=== PATIENT | female | born 1945 | race Caucasian/White ===

== ENCOUNTER 2020-03-22 12:33 | Outpatient (REF) | payer OTHER, MEDICARE, MEDICAID, SELFPAY ==
--- NOTE | 2020-03-22 12:46 | XR_ITS ---
EXAMINATION: XR RIBS, LEFT CLINICAL INFORMATION: Pleurodynia COMPARISON: None TECHNIQUE: PA chest and three-view left ribs FINDINGS: There is some linear scarring or atelectasis with appearance of curly B lines seen within the mid and lower left lung. This can be due to edema or distention of the lymphatics. No evidence of interstitial edema elsewhere. No pneumothorax or pleural effusion appreciated. Heart normal size. Views of the left ribs demonstrate what may be acute or chronic nondisplaced fracture anterior aspect of the left eighth rib. No destructive bony lesion is appreciated. There is calcific tendinitis of the left shoulder. XR/XR ribs LT min 3V w CXR1V IMPRESSION: No left pleural effusion identified. No left pleural thickening is seen. Question old or new nondisplaced fracture anterior aspect of the left eighth rib. Regions of linear scarring as well as what appears be curly B lines within the mid and lower left lung without evidence of interstitial edema elsewhere.
== END 2020-03-22 12:34 | disposition home or self-care (01) ==
LOC: HO.HMGCX 12:33
PROVIDERS: Visit Provider Hospitalist
DX: R07.81 Pleurodynia (principal)
CPT/HCPCS: 71101

== ENCOUNTER 2020-04-24 09:36 | Outpatient (REF) | payer MEDICARE, MEDICAID, SELFPAY ==
[2020-04-24 11:04] LABS: Estimated Average Glucose 183 mg/dL; Hemoglobin A1C 235.1581 umol/L
[2020-04-24 11:20] LABS: Alanine Aminotransferase 20 U/L (0-31); Albumin Level 4.4 g/dL (3.5-5.0); Alkaline Phosphatase 89 U/L (39-117); Anion Gap 15 (12-20); Aspartate Amino Transferase 17 U/L (5-31); Bilirubin Total 0.9 mg/dL (0.0-1.0); Blood Urea Nitrogen 16 mg/dL (9-16); Calcium 9.2 mg/dL (8.4-10.2); Carbon Dioxide 26 mmol/L (22-29); Chloride 104 mmol/L (96-108); Cholesterol 151 mg/dL; Estimated Glomerular Filt Rate > 60; Glucose Fasting 155 mg/dL (60-99); HDL Cholesterol 44 mg/dL; LDL Cholesterol Calculated 85 mg/dl; Potassium 4.5 mmol/l (3.3-5.1); Sodium 140 mmol/L (135-145); Total Protein 7.3 g/dL (6.5-8.0); Triglycerides 113 mg/dL
== END 2020-04-24 09:37 | disposition home or self-care (01) ==
LOC: HO.LAB 09:36
PROVIDERS: PCP Internal Medicine; Visit Provider Nurse Practitioner Family
DX: E78.00 Pure hypercholesterolemia, unspecified (principal); E11.9 Type 2 diabetes mellitus without complications
CPT/HCPCS: 80053; 80061; 83036

== ENCOUNTER 2020-07-06 07:48 | Outpatient (REF) | payer MEDICARE, MEDICAID, SELFPAY ==
[2020-07-06 08:20] LABS: MANUAL DIFF FLAG NO
[2020-07-06 08:32] LABS: Basophils Absolute Auto 0.1 X10*3/uL (0.0-0.2); Basophils Percent Auto 1.1 % (0-2); Eosinophils Absolute Auto 0.8 X10*3/uL (0.0-0.4); Eosinophils Percent Auto 7.7 % (0-4); Hematocrit 43.5 % (37-47); Hemoglobin 14.2 g/dl (12.0-16.0); Imm Gran Abs Auto 0.17 X10*3/uL (0.00-0.03); Imm Gran Pct Auto 1.6 % (0.0-0.4); Lymphocytes Absolute Auto 1.9 X10*3/uL (1.2-4.9); Lymphocytes Percent Auto 18.3 % (20-40); Mean Corpuscular HGB Conc 32.6 g/dl (31.0-35.0); Mean Corpuscular Hemoglobin 29.6 pg (27.0-33.0); Mean Corpuscular Volume 90.6 fL (80-98); Mean Platelet Volume 9.7 fL (9.4-12.3); Monocytes Absolute Auto 0.6 X10*3/uL (0.1-1.2); Monocytes Percent Auto 5.6 % (2-11); Neutrophils Absolute Auto 6.9 X10*3/uL (2.0-8.3); Neutrophils Percent Auto 65.7 % (45-73); Platelet Count 222 X10*3/uL (160-400); White Blood Count 10.5 X10*3/uL (4.8-10.8)
[2020-07-06 08:41] LABS: Estimated Average Glucose 209 mg/dL; Hemoglobin A1c % 8.9 %
[2020-07-06 08:59] LABS: Alanine Aminotransferase 25 U/L (0-31); Albumin Level 4.2 g/dL (3.5-5.0); Alkaline Phosphatase 77 U/L (39-117); Anion Gap 14 (12-20); Aspartate Amino Transferase 18 U/L (5-31); Bilirubin Total 0.9 mg/dL (0.0-1.0); Blood Urea Nitrogen 20 mg/dL (9-16); Calcium 8.9 mg/dL (8.4-10.2); Carbon Dioxide 25 mmol/L (22-29); Chloride 105 mmol/L (96-108); Cholesterol 149 mg/dL; Estimated Glomerular Filt Rate > 60; Glucose Fasting 208 mg/dL (60-99); HDL Cholesterol 37 mg/dL; LDL Cholesterol Calculated 76 mg/dl; Potassium 4.6 mmol/L (3.3-5.1); Sodium 139 mmol/L (135-145); Total Protein 6.9 g/dL (6.5-8.0); Triglycerides 182 mg/dL
[2020-07-06 09:10] LABS: TSH reflex Free T4 1.14 uIU/mL (0.32-4.0); Vitamin D 25-OH Total 34.5 ng/mL (>30)
[2020-07-06 09:51] LABS: Glucose Urine UA 500 MG/DL (NEG); Leukocyte Esterase Urine NEG (NEG); Nitrite Urine NEG (NEG); PH 5.5 (5.0-8.0); Specific Gravity - Urine 1.025 (1.005-1.025); Urine Blood TRACE (NEG); Urine Ketones 5 MG/DL (NEG); Urine Protein NEG (NEG-TRACE)
[2020-07-06 09:52] LABS: Appearance Urine HAZY; Color Urine YELLOW
[2020-07-06 10:01] LABS: Mucus Urine TRACE /LPF; Squamous Epithelial Cell Urine 1+ /LPF; WBC Urine 0-2 /HPF (0-4)
== END 2020-07-06 07:49 | disposition home or self-care (01) ==
LOC: HO.LAB 07:48
PROVIDERS: PCP Internal Medicine; Visit Provider Internal Medicine
DX: M47.812 Spondylosis without myelopathy or radiculopathy, cervical region (principal); F17.200 Nicotine dependence, unspecified, uncomplicated; E78.00 Pure hypercholesterolemia, unspecified; E11.9 Type 2 diabetes mellitus without complications; E66.3 Overweight; E55.9 Vitamin D deficiency, unspecified
CPT/HCPCS: 36415; 80053; 80061; 81001; 82306; 83036; 84443; 85025

== ENCOUNTER 2020-12-12 09:09 | Outpatient (REF) | payer MEDICARE, MEDICAID, SELFPAY ==
[2020-12-12 10:35] LABS: MANUAL DIFF FLAG NO
[2020-12-12 10:47] LABS: Basophils Absolute Auto 0.1 X10*3/uL (0.0-0.2); Basophils Percent Auto 0.6 % (0-2); Eosinophils Absolute Auto 0.4 X10*3/uL (0.0-0.4); Eosinophils Percent Auto 3.4 % (0-4); Hematocrit 42.2 % (37-47); Hemoglobin 13.4 g/dl (12.0-16.0); Imm Gran Abs Auto 0.09 X10*3/uL (0.00-0.03); Imm Gran Pct Auto 0.7 % (0.0-0.4); Lymphocytes Absolute Auto 2.1 X10*3/uL (1.2-4.9); Mean Corpuscular HGB Conc 31.8 g/dl (31.0-35.0); Mean Corpuscular Hemoglobin 28.3 pg (27.0-33.0); Mean Platelet Volume 9.5 fL (9.4-12.3); Monocytes Absolute Auto 0.5 X10*3/uL (0.1-1.2); Monocytes Percent Auto 4.4 % (2-11); Neutrophils Absolute Auto 9.1 X10*3/uL (2.0-8.3); Neutrophils Percent Auto 73.9 % (45-73); Platelet Count 245 X10*3/uL (160-400); Red Blood Count 4.74 X10*6/uL (4.20-5.50); Red Cell Distribution Width 14.2 % (11.0-16.0); White Blood Count 12.4 X10*3/uL (4.8-10.8)
[2020-12-12 10:54] LABS: Glucose Urine UA NEG (NEG); Leukocyte Esterase Urine NEG (NEG); Nitrite Urine NEG (NEG); Specific Gravity - Urine 1.015 (1.005-1.025); Urine Blood NEG (NEG); Urine Ketones NEG (NEG); Urine Protein NEG (NEG-TRACE)
[2020-12-12 10:55] LABS: Appearance Urine CLEAR; Color Urine YELLOW
[2020-12-12 10:56] LABS: Alanine Aminotransferase 23 U/L (0-31); Albumin Level 4.1 g/dL (3.5-5.0); Alkaline Phosphatase 88 U/L (39-117); Anion Gap 13 (12-20); Aspartate Amino Transferase 25 U/L (5-31); Bilirubin Total 0.6 mg/dL (0.0-1.0); Blood Urea Nitrogen 11 mg/dL (9-16); Calcium 9.5 mg/dL (8.4-10.2); Carbon Dioxide 24 mmol/L (22-29); Chloride 107 mmol/L (96-108); Cholesterol 119 mg/dL; Estimated Glomerular Filt Rate > 60; Glucose Fasting 110 mg/dL (60-99); HDL Cholesterol 42 mg/dL; LDL Cholesterol Calculated 63 mg/dl; Potassium 3.8 mmol/L (3.3-5.1); Sodium 140 mmol/L (135-145); Total Protein 6.7 g/dL (6.5-8.0); Triglycerides 70 mg/dL
[2020-12-12 11:10] LABS: Creatinine Urine 63.01 mg/dL; Microalbum/Creatinine Ratio Ur 31.7 ug/mg cr
[2020-12-12 11:19] LABS: Estimated Average Glucose 183 mg/dL
[2020-12-12 11:21] LABS: TSH reflex Free T4 0.84 uIU/mL (0.32-4.0); Vitamin D 25-OH Total 39.7 ng/mL (>30)
[2020-12-13 21:57] LABS: C Peptide 2.16 ng/mL (0.80-3.85)
== END 2020-12-12 09:10 | disposition home or self-care (01) ==
LOC: HO.LAB 09:09
PROVIDERS: PCP Internal Medicine; Visit Provider Internal Medicine
DX: I10 Essential (primary) hypertension (principal); R03.0 Elevated blood-pressure reading, without diagnosis of hypertension; E11.9 Type 2 diabetes mellitus without complications; E78.00 Pure hypercholesterolemia, unspecified; E66.3 Overweight; E55.9 Vitamin D deficiency, unspecified; F17.200 Nicotine dependence, unspecified, uncomplicated; M85.80 Other specified disorders of bone density and structure, unspecified site
CPT/HCPCS: 36415; 80053; 80061; 81003; 82043; 82306; 83036; 84443; 84681; 85025

== ENCOUNTER 2021-01-04 14:09 | Outpatient (REF) | payer MEDICARE, MEDICAID, SELFPAY ==
--- NOTE | ~2021-01-04 | MM_ITS ---
EXAMINATION: BONE DENSITOMETRY CLINICAL INDICATION: Menopause. COMPARISON: None (current study represents initial baseline exam). TECHNIQUE: Using a Agenda DXA System (software version: 13.1) manufactured by [employer], dual-energy x-ray absorptiometry was performed of the lumbar spine and left hip. The images are of good technical quality. Summary results are attached. FINDINGS: AP SPINE L1-L2 (excluding L3 and L4): The data of L1-L4 has been changed to exclude the L3 and L4 vertebral bodies, because degenerative changes at these levels may cause overestimation of lumbar spine density. BMD 1.035 g/cm2, Z-score 0.7, T-score -1.1, osteopenia. LEFT FEMUR, NECK: BMD 0.784 g/cm2, Z-score 0.2, T-score -1.8, osteopenia. LEFT FEMUR, TOTAL: BMD 0.822 g/cm2, Z-score 0.4, T-score -1.5, osteopenia. IDENTIFIED RISK FACTORS: Menopause, rheumatoid arthritis, height loss, tobacco use (current smoker). HISTORY OF FRACTURE: None listed. MEDICATIONS: Calcium, vitamin D. MM/XR DEXA axial skeleton IMPRESSION: 1. DIAGNOSIS: Osteopenia based on the lowest T-score value of -1.8 in the femoral neck applying World Health Organization criteria. 2. 10-YEAR FRACTURE RISK PREDICTION, FRAX: Major osteoporotic fracture (clinical spine, forearm, hip or shoulder) 18.3%. Hip fracture 7.4%. 3. Treatment Recommendations: NOF guidelines recommend consideration for treatment in postmenopausal women and men age 50 and older presenting with the following: -A hip or vertebral (clinical or morphometric) fracture. -T-score less than or equal to -2.5 at the femoral neck or spine after appropriate evaluation to exclude secondary causes. -Low bone mass at the hip or spine and a 10-year fracture probability by FRAX of greater than or equal to 3% for hip fracture or greater than or equal to 20% for major osteoporotic fracture based on the [place] adapted WHO algorithm. 4. Other Recommendations: All treatment decisions require clinical judgment and consideration of individual patient factors, including patient preferences, comorbidities, previous drug use, risk factors not captured in the FRAX model (e.g. frailty, falls, vitamin D deficiency, increased bone turnover, interval significant decline in bone density) and possible under or overestimation of fracture risk by FRAX. Additional medical evaluation for secondary cause of low bone mineral density may be appropriate. FUTURE SCAN RECOMMENDATION: People with diagnosed cases of osteoporosis or at high risk for fracture should have regular bone mineral density tests. For patients eligible for Medicare, routine testing is allowed once every 2 years. The testing frequency can be increased to one year for patients who have rapidly progressing disease, those who are receiving or discontinuing medical therapy to restore bone mass, or have additional risk factors.
== END 2021-01-04 14:10 | disposition home or self-care (01) ==
LOC: HO.MAMMO 14:09
PROVIDERS: PCP Internal Medicine; Visit Provider Internal Medicine
DX: Z13.820 Encounter for screening for osteoporosis (principal); M85.80 Other specified disorders of bone density and structure, unspecified site; Z78.0 Asymptomatic menopausal state; M06.9 Rheumatoid arthritis, unspecified; F17.200 Nicotine dependence, unspecified, uncomplicated; Z79.899 Other long term (current) drug therapy
CPT/HCPCS: 77080

== ENCOUNTER 2021-03-19 09:09 | Outpatient (REF) | payer MEDICARE, MEDICAID, SELFPAY ==
[2021-03-19 09:34] LABS: MANUAL DIFF FLAG NO
[2021-03-19 10:13] LABS: Basophils Absolute Auto 0.1 X10*3/uL (0.0-0.2); Basophils Percent Auto 0.6 % (0-2); Eosinophils Absolute Auto 0.4 X10*3/uL (0.0-0.4); Eosinophils Percent Auto 3.7 % (0-4); Hematocrit 43.8 % (37.0-47.0); Hemoglobin 14.4 g/dl (12.0-16.0); Imm Gran Abs Auto 0.05 X10*3/uL (0.00-0.03); Imm Gran Pct Auto 0.5 % (0.0-0.4); Lymphocytes Absolute Auto 2.1 X10*3/uL (1.2-4.9); Lymphocytes Percent Auto 18.8 % (20-40); Mean Corpuscular HGB Conc 32.9 g/dl (31.0-35.0); Mean Corpuscular Hemoglobin 29.1 pg (27.0-33.0); Mean Corpuscular Volume 88.5 fL (80.0-98.0); Mean Platelet Volume 9.5 fL (9.4-12.3); Monocytes Absolute Auto 0.5 X10*3/uL (0.1-1.2); Monocytes Percent Auto 4.4 % (2-11); Platelet Count 252 X10*3/uL (160-400); Red Blood Count 4.95 X10*6/uL (4.20-5.50); Red Cell Distribution Width 15.2 % (11.0-16.0); White Blood Count 11.1 X10*3/uL (4.8-10.8)
[2021-03-19 10:29] LABS: Appearance Urine CLEAR; Color Urine YELLOW; Glucose Urine UA NEG (NEG); Leukocyte Esterase Urine NEG (NEG); Nitrite Urine NEG (NEG); Urine Blood NEG (NEG); Urine Ketones NEG (NEG); Urine Protein NEG (NEG-TRACE)
[2021-03-19 10:44] LABS: Alanine Aminotransferase 28 U/L (0-31); Albumin Level 4.1 g/dL (3.5-5.0); Alkaline Phosphatase 105 U/L (39-117); Anion Gap 14 (12-20); Aspartate Amino Transferase 22 U/L (5-31); Bilirubin Total 0.8 mg/dL (0.0-1.0); Blood Urea Nitrogen 15 mg/dL (9-16); Calcium 9.3 mg/dL (8.4-10.2); Carbon Dioxide 27 mmol/L (22-29); Chloride 105 mmol/L (96-108); Cholesterol 139 mg/dL; Estimated Glomerular Filt Rate > 60; Glucose Fasting 140 mg/dL (60-99); HDL Cholesterol 42 mg/dL; LDL Cholesterol Calculated 78 mg/dl; Potassium 4.5 mmol/L (3.3-5.1); Sodium 141 mmol/L (135-145); Triglycerides 97 mg/dL
[2021-03-19 10:59] LABS: Estimated Average Glucose 154 mg/dL
[2021-03-19 11:03] LABS: Creatinine Urine 56.17 mg/dL; Microalbum/Creatinine Ratio Ur 14.2 ug/mg cr
[2021-03-19 11:06] LABS: TSH reflex Free T4 0.88 uIU/mL (0.32-4.0); Vitamin D 25-OH Total 48.8 ng/mL (>30)
== END 2021-03-19 09:10 | disposition home or self-care (01) ==
LOC: HO.LAB 09:09
PROVIDERS: PCP Internal Medicine; Visit Provider Internal Medicine
DX: E78.00 Pure hypercholesterolemia, unspecified (principal); E55.9 Vitamin D deficiency, unspecified; E11.9 Type 2 diabetes mellitus without complications; I10 Essential (primary) hypertension
CPT/HCPCS: 36415; 80053; 80061; 81003; 82043; 82306; 83036; 84443; 85025

== ENCOUNTER 2021-06-25 09:28 | Outpatient (REF) | payer MEDICARE, MEDICAID, SELFPAY ==
[2021-06-25 09:48] LABS: MANUAL DIFF FLAG NO
[2021-06-25 10:13] LABS: Basophils Absolute Auto 0.1 X10*3/uL (0.0-0.2); Basophils Percent Auto 0.6 % (0-2); Eosinophils Absolute Auto 0.4 X10*3/uL (0.0-0.4); Eosinophils Percent Auto 3.4 % (0-4); Hematocrit 43.1 % (37.0-47.0); Hemoglobin 14.2 g/dl (12.0-16.0); Imm Gran Abs Auto 0.14 X10*3/uL (0.00-0.03); Imm Gran Pct Auto 1.1 % (0.0-0.4); Lymphocytes Percent Auto 15.9 % (20-40); Mean Corpuscular HGB Conc 32.9 g/dl (31.0-35.0); Mean Corpuscular Hemoglobin 29.9 pg (27.0-33.0); Mean Corpuscular Volume 90.7 fL (80.0-98.0); Mean Platelet Volume 9.4 fL (9.4-12.3); Monocytes Absolute Auto 0.7 X10*3/uL (0.1-1.2); Monocytes Percent Auto 5.2 % (2-11); Neutrophils Absolute Auto 9.2 x10*3/uL (2.0-8.3); Neutrophils Percent Auto 73.8 % (45-73); Platelet Count 246 X10*3/uL (160-400); Red Blood Count 4.75 X10*6/uL (4.20-5.50); Red Cell Distribution Width 14.8 % (11.0-16.0); White Blood Count 12.5 X10*3/uL (4.8-10.8)
[2021-06-25 10:46] LABS: Appearance Urine CLEAR; Color Urine YELLOW; Glucose Urine UA 100 MG/DL (NEG); Leukocyte Esterase Urine NEG (NEG); Nitrite Urine NEG (NEG); PH 5.5 (5.0-8.0); Urine Blood NEG (NEG); Urine Ketones NEG (NEG); Urine Protein NEG (NEG-TRACE)
[2021-06-25 10:49] LABS: Estimated Average Glucose 203 mg/dL; Hemoglobin A1c % 8.7 %
[2021-06-25 11:16] LABS: TSH reflex Free T4 1.15 uIU/mL (0.32-4.0); Vitamin D 25-OH Total 36.5 ng/mL (>30)
[2021-06-25 11:33] LABS: Cholesterol 164 mg/dL; HDL Cholesterol 44 mg/dL; LDL Cholesterol Calculated 90 mg/dl; Triglycerides 151 mg/dL
== END 2021-06-25 09:29 | disposition home or self-care (01) ==
LOC: HO.LAB 09:28
PROVIDERS: PCP Internal Medicine; Visit Provider Internal Medicine
DX: I10 Essential (primary) hypertension (principal); E55.9 Vitamin D deficiency, unspecified; E78.00 Pure hypercholesterolemia, unspecified; E11.9 Type 2 diabetes mellitus without complications
CPT/HCPCS: 36415; 80053; 80061; 81003; 82043; 82306; 83036; 84443; 85025

== ENCOUNTER 2021-06-26 09:37 | Outpatient (REF) | payer MEDICARE, MEDICAID, SELFPAY ==
[2021-06-26 11:04] LABS: Alanine Aminotransferase 26 U/L (0-31); Albumin Level 4.5 g/dL (3.5-5.0); Alkaline Phosphatase 99 U/L (39-117); Anion Gap 16 (12-20); Aspartate Amino Transferase 25 U/L (5-31); Blood Urea Nitrogen 15 mg/dL (9-16); Calcium 10.5 mg/dL (8.4-10.2); Carbon Dioxide 24 mmol/L (22-29); Chloride 102 mmol/L (96-108); Estimated Glomerular Filt Rate > 60; Glucose Fasting 213 mg/dL (60-99); Potassium 4.4 mmol/L (3.3-5.1); Sodium 138 mmol/L (135-145); Total Protein 7.8 g/dL (6.5-8.0)
== END 2021-06-26 09:38 | disposition home or self-care (01) ==
LOC: HO.LAB 09:37
PROVIDERS: PCP Internal Medicine; Visit Provider Internal Medicine
DX: E78.00 Pure hypercholesterolemia, unspecified (principal)
CPT/HCPCS: 36415; 80053

== ENCOUNTER 2021-09-24 08:27 | Outpatient (REF) | payer MEDICARE, MEDICAID, SELFPAY ==
[2021-09-24 09:04] LABS: MANUAL DIFF FLAG NO
[2021-09-24 09:42] LABS: Basophils Absolute Auto 0.1 X10*3/uL (0.0-0.2); Basophils Percent Auto 0.8 % (0-2); Eosinophils Absolute Auto 0.4 X10*3/uL (0.0-0.4); Eosinophils Percent Auto 3.7 % (0-4); Hematocrit 44.1 % (37.0-47.0); Hemoglobin 14.4 g/dl (12.0-16.0); Imm Gran Abs Auto 0.11 X10*3/uL (0.00-0.03); Lymphocytes Absolute Auto 1.5 X10*3/uL (1.2-4.9); Lymphocytes Percent Auto 14.2 % (20-40); Mean Corpuscular HGB Conc 32.7 g/dl (31.0-35.0); Mean Corpuscular Hemoglobin 30.1 pg (27.0-33.0); Mean Corpuscular Volume 92.3 fL (80.0-98.0); Mean Platelet Volume 9.6 fL (9.4-12.3); Monocytes Absolute Auto 0.6 X10*3/uL (0.1-1.2); Monocytes Percent Auto 5.6 % (2-11); Neutrophils Percent Auto 74.7 % (45-73); Platelet Count 237 X10*3/uL (160-400); Red Blood Count 4.78 X10*6/uL (4.20-5.50); Red Cell Distribution Width 14.1 % (11.0-16.0); White Blood Count 10.7 X10*3/uL (4.8-10.8)
[2021-09-24 09:45] LABS: Estimated Average Glucose 192 mg/dL; Hemoglobin A1c % 8.3 %
[2021-09-24 09:59] LABS: Alanine Aminotransferase 31 U/L (0-31); Albumin Level 4.2 g/dL (3.5-5.0); Alkaline Phosphatase 90 U/L (39-117); Anion Gap 15 (12-20); Aspartate Amino Transferase 23 U/L (5-31); Bilirubin Total 0.7 mg/dL (0.0-1.0); Blood Urea Nitrogen 12 mg/dL (9-16); Calcium 10.2 mg/dL (8.4-10.2); Carbon Dioxide 25 mmol/L (22-29); Chloride 104 mmol/L (96-108); Cholesterol 149 mg/dL; Estimated Glomerular Filt Rate > 60; Glucose Fasting 194 mg/dL (60-99); HDL Cholesterol 38 mg/dL; LDL Cholesterol Calculated 74 mg/dl; Potassium 4.6 mmol/L (3.3-5.1); Sodium 139 mmol/L (135-145); Total Protein 7.3 g/dL (6.5-8.0); Triglycerides 186 mg/dL
[2021-09-24 10:22] LABS: TSH reflex Free T4 0.85 uIU/mL (0.32-4.0); Vitamin D 25-OH Total 39.2 ng/mL (>30)
[2021-09-24 10:40] LABS: Appearance Urine HAZY; Color Urine YELLOW; Glucose Urine UA 100 MG/DL (NEG); Leukocyte Esterase Urine NEG (NEG); Nitrite Urine NEG (NEG); Specific Gravity - Urine 1.015 (1.005-1.025); Urine Blood NEG (NEG); Urine Ketones NEG (NEG); Urine Protein NEG (NEG-TRACE)
[2021-09-24 10:59] LABS: Creatinine Urine 79.61 mg/dL; Microalbum/Creatinine Ratio Ur 21.3 ug/mg cr
== END 2021-09-24 08:28 | disposition home or self-care (01) ==
LOC: HO.LAB 08:27
PROVIDERS: PCP Internal Medicine; Visit Provider Internal Medicine
DX: E11.9 Type 2 diabetes mellitus without complications (principal); E78.00 Pure hypercholesterolemia, unspecified; E55.9 Vitamin D deficiency, unspecified; I10 Essential (primary) hypertension; F17.200 Nicotine dependence, unspecified, uncomplicated
CPT/HCPCS: 36415; 80053; 80061; 81003; 82043; 82306; 83036; 84443; 85025

== ENCOUNTER 2022-01-15 09:24 | Outpatient (REF) | payer MEDICARE, MEDICAID, SELFPAY ==
[2022-01-15 09:46] LABS: MANUAL DIFF FLAG NO
[2022-01-15 10:24] LABS: Appearance Urine Clear; Color Urine Yellow; Glucose Urine UA Negative (Negative); Leukocyte Esterase Urine Moderate (2+) (Negative); Nitrite Urine Negative (Negative); PH 6.5 (5.0-9.0); Urine Blood Negative (Negative); Urine Ketones Negative (Negative); Urine Protein Negative (Neg-Trace)
[2022-01-15 10:26] LABS: Basophils Absolute Auto 0.1 X10*3/uL (0.0-0.2); Basophils Percent Auto 0.8 % (0-2); Eosinophils Absolute Auto 0.5 X10*3/uL (0.0-0.4); Eosinophils Percent Auto 5.6 % (0-4); Hematocrit 44.6 % (37.0-47.0); Hemoglobin 14.5 g/dl (12.0-16.0); Imm Gran Abs Auto 0.06 X10*3/uL (0.00-0.03); Imm Gran Pct Auto 0.6 % (0.0-0.4); Lymphocytes Absolute Auto 1.7 X10*3/uL (1.2-4.9); Lymphocytes Percent Auto 18.2 % (20-40); Mean Corpuscular HGB Conc 32.5 g/dl (31.0-35.0); Mean Corpuscular Volume 92.1 fL (80.0-98.0); Mean Platelet Volume 9.6 fL (9.4-12.3); Monocytes Absolute Auto 0.6 X10*3/uL (0.1-1.2); Monocytes Percent Auto 6.8 % (2-11); Neutrophils Absolute Auto 6.4 x10*3/uL (2.0-8.3); Platelet Count 248 X10*3/uL (160-400); Red Blood Count 4.84 X10*6/uL (4.20-5.50); Red Cell Distribution Width 14.2 % (11.0-16.0); White Blood Count 9.5 X10*3/uL (4.8-10.8)
[2022-01-15 10:35] LABS: Bacteria Urine None Seen (None Seen); Hyaline Casts Urine 0-2 /LPF (0-2); RBC Urine 0-2 /HPF (0-2); Squamous Epithelial Cell Urine 0-2 /HPF (0-2); WBC Urine 0-5 /HPF (0-5)
[2022-01-15 10:43] LABS: Alanine Aminotransferase 44 U/L (0-31); Albumin Level 4.3 g/dL (3.5-5.0); Alkaline Phosphatase 92 U/L (39-117); Anion Gap 16 (12-20); Aspartate Amino Transferase 34 U/L (5-31); Bilirubin Total 0.8 mg/dL (0.0-1.0); Blood Urea Nitrogen 8 mg/dL (9-16); Calcium 9.3 mg/dL (8.4-10.2); Carbon Dioxide 28 mmol/L (22-29); Chloride 103 mmol/L (96-108); Cholesterol 130 mg/dL; Estimated Average Glucose 143 mg/dL; Estimated Glomerular Filt Rate > 60; Glucose Fasting 105 mg/dL (60-99); HDL Cholesterol 54 mg/dL; Hemoglobin A1c % 6.6 %; LDL Cholesterol Calculated 64 mg/dl; Sodium 143 mmol/L (135-145); Total Protein 7.2 g/dL (6.5-8.0); Triglycerides 64 mg/dL
[2022-01-15 11:07] LABS: TSH reflex Free T4 1.03 uIU/mL (0.32-4.0); Vitamin D 25-OH Total 53.7 ng/mL (>30)
[2022-01-15 11:09] LABS: Creatinine Urine 41.73 mg/dL; Microalbum/Creatinine Ratio Ur 28.7 ug/mg cr
== END 2022-01-15 09:25 | disposition home or self-care (01) ==
LOC: HO.LAB 09:24
PROVIDERS: PCP Internal Medicine; Visit Provider Internal Medicine
DX: E78.00 Pure hypercholesterolemia, unspecified (principal); E55.9 Vitamin D deficiency, unspecified; E11.9 Type 2 diabetes mellitus without complications; I10 Essential (primary) hypertension
CPT/HCPCS: 36415; 80053; 80061; 81001; 82043; 82306; 83036; 84443; 85025; 87086

== ENCOUNTER 2022-04-18 09:16 | Outpatient (REF) | payer MEDICARE, MEDICAID, SELFPAY ==
[2022-04-18 09:44] LABS: MANUAL DIFF FLAG NO
[2022-04-18 10:18] LABS: Basophils Absolute Auto 0.1 X10*3/uL (0.0-0.2); Basophils Percent Auto 0.8 % (0-2); Eosinophils Absolute Auto 0.7 X10*3/uL (0.0-0.4); Eosinophils Percent Auto 5.8 % (0-4); Hemoglobin 13.7 g/dl (12.0-16.0); Imm Gran Pct Auto 0.9 % (0.0-0.4); Lymphocytes Absolute Auto 1.9 X10*3/uL (1.2-4.9); Lymphocytes Percent Auto 16.7 % (20-40); Mean Corpuscular HGB Conc 31.9 g/dl (31.0-35.0); Mean Corpuscular Hemoglobin 29.4 pg (27.0-33.0); Mean Corpuscular Volume 92.3 fL (80.0-98.0); Mean Platelet Volume 9.5 fL (9.4-12.3); Monocytes Absolute Auto 0.6 X10*3/uL (0.1-1.2); Monocytes Percent Auto 5.2 % (2-11); Neutrophils Percent Auto 70.6 % (45-73); Platelet Count 234 X10*3/uL (160-400); Red Blood Count 4.66 X10*6/uL (4.20-5.50); Red Cell Distribution Width 14.9 % (11.0-16.0); White Blood Count 11.3 X10*3/uL (4.8-10.8)
[2022-04-18 10:20] LABS: Appearance Urine Clear; Color Urine Yellow; Glucose Urine UA Negative (Negative); Leukocyte Esterase Urine Small (1+) (Negative); Nitrite Urine Negative (Negative); Specific Gravity - Urine 1.015 (1.005-1.025); UMIC TRIGGER UACC YES; Urine Blood Negative (Negative); Urine Ketones Negative (Negative); Urine Protein Negative (Neg-Trace)
[2022-04-18 10:36] LABS: Bacteria Urine None Seen (None Seen); Hyaline Casts Urine 0-2 /LPF (0-2); RBC Urine 0-2 /HPF (0-2); Squamous Epithelial Cell Urine 0-2 /HPF (0-2); UACC Culture Trigger YES; WBC Urine 0-5 /HPF (0-5)
[2022-04-18 10:37] LABS: Estimated Average Glucose 148 mg/dL; Hemoglobin A1c % 6.8 %
[2022-04-18 11:22] LABS: Creatinine Urine 51.59 mg/dL; Microalbum/Creatinine Ratio Ur 19.3 ug/mg cr
[2022-04-18 12:41] LABS: Alanine Aminotransferase 18 U/L (0-31); Alkaline Phosphatase 95 U/L (39-117); Anion Gap 11 (12-20); Aspartate Amino Transferase 17 U/L (5-31); Bilirubin Total 0.6 mg/dL (0.0-1.0); Blood Urea Nitrogen 17 mg/dL (9-16); Calcium 9.3 mg/dL (8.4-10.2); Carbon Dioxide 28 mmol/L (22-29); Chloride 105 mmol/L (96-108); Cholesterol 143 mg/dL; Estimated Glomerular Filt Rate > 60; Glucose Fasting 126 mg/dL (60-99); HDL Cholesterol 47 mg/dL; LDL Cholesterol Calculated 77 mg/dl; Potassium 4.4 mmol/L (3.3-5.1); Sodium 140 mmol/L (135-145); TSH reflex Free T4 0.82 uIU/mL (0.32-4.0); Total Protein 6.6 g/dL (6.5-8.0); Triglycerides 96 mg/dL; Vitamin D 25-OH Total 44.3 ng/mL (>30)
== END 2022-04-18 09:17 | disposition home or self-care (01) ==
LOC: HO.LAB 09:16
PROVIDERS: PCP Internal Medicine; Visit Provider Internal Medicine
DX: I10 Essential (primary) hypertension (principal); E11.9 Type 2 diabetes mellitus without complications; E55.9 Vitamin D deficiency, unspecified; E78.00 Pure hypercholesterolemia, unspecified
CPT/HCPCS: 36415; 80053; 80061; 81001; 82043; 82306; 83036; 84443; 85025; 87086

== ENCOUNTER 2022-07-21 09:54 | Outpatient (REF) | payer MEDICARE, MEDICAID, SELFPAY ==
[2022-07-21 10:08] LABS: MANUAL DIFF FLAG NO
[2022-07-21 10:54] LABS: Basophils Absolute Auto 0.1 X10*3/uL (0.0-0.2); Basophils Percent Auto 0.9 % (0-2); Eosinophils Absolute Auto 0.8 X10*3/uL (0.0-0.4); Eosinophils Percent Auto 7.2 % (0-4); Hematocrit 45.4 % (37.0-47.0); Imm Gran Abs Auto 0.08 X10*3/uL (0.00-0.03); Imm Gran Pct Auto 0.8 % (0.0-0.4); Lymphocytes Percent Auto 19.2 % (20-40); Mean Corpuscular Hemoglobin 30.4 pg (27.0-33.0); Mean Corpuscular Volume 92.1 fL (80.0-98.0); Mean Platelet Volume 9.6 fL (9.4-12.3); Monocytes Absolute Auto 0.6 X10*3/uL (0.1-1.2); Monocytes Percent Auto 5.2 % (2-11); Neutrophils Percent Auto 66.7 % (45-73); Platelet Count 228 X10*3/uL (160-400); Red Blood Count 4.93 X10*6/uL (4.20-5.50); Red Cell Distribution Width 14.5 % (11.0-16.0); White Blood Count 10.5 X10*3/uL (4.8-10.8)
[2022-07-21 11:18] LABS: Appearance Urine Clear; Color Urine Yellow; Glucose Urine UA Negative (Negative); Leukocyte Esterase Urine Moderate (2+) (Negative); Nitrite Urine Negative (Negative); Specific Gravity - Urine 1.015 (1.005-1.025); UMIC TRIGGER UACC YES; Urine Blood Negative (Negative); Urine Ketones Negative (Negative); Urine Protein Negative (Neg-Trace)
[2022-07-21 11:20] LABS: Estimated Average Glucose 171 mg/dL; Hemoglobin A1c % 7.6 %
[2022-07-21 11:32] LABS: Bacteria Urine None Seen (None Seen); Hyaline Casts Urine 0-2 /LPF (0-2); RBC Urine 0-2 /HPF (0-2); Squamous Epithelial Cell Urine 0-2 /HPF (0-2); WBC Urine 0-5 /HPF (0-5)
[2022-07-21 11:38] LABS: Alanine Aminotransferase 25 U/L (0-31); Albumin Level 4.3 g/dL (3.5-5.0); Alkaline Phosphatase 87 U/L (39-117); Anion Gap 13 (12-20); Aspartate Amino Transferase 19 U/L (5-31); Bilirubin Total 1.1 mg/dL (0.0-1.0); Blood Urea Nitrogen 17 mg/dL (9-16); Calcium 9.3 mg/dL (8.4-10.2); Carbon Dioxide 26 mmol/L (22-29); Chloride 105 mmol/L (96-108); Cholesterol 167 mg/dL; Estimated Glomerular Filt Rate > 60; Glucose Fasting 137 mg/dL (60-99); HDL Cholesterol 45 mg/dL; LDL Cholesterol Calculated 84 mg/dl; Potassium 4.2 mmol/L (3.3-5.1); Sodium 140 mmol/L (135-145); Total Protein 7.1 g/dL (6.5-8.0); Triglycerides 193 mg/dL
[2022-07-21 12:03] LABS: TSH reflex Free T4 1.16 uIU/mL (0.32-4.0); Vitamin D 25-OH Total 41.5 ng/mL (>30)
[2022-07-21 12:46] LABS: Microalbum/Creatinine Ratio Ur 24.4 ug/mg cr
== END 2022-07-21 09:55 | disposition home or self-care (01) ==
LOC: HO.LAB 09:54
PROVIDERS: PCP Internal Medicine; Visit Provider Internal Medicine
DX: E78.00 Pure hypercholesterolemia, unspecified (principal); E55.9 Vitamin D deficiency, unspecified; E11.9 Type 2 diabetes mellitus without complications; I10 Essential (primary) hypertension
CPT/HCPCS: 36415; 80053; 80061; 81001; 82043; 82306; 83036; 84443; 85025

== ENCOUNTER 2022-07-24 12:15 | Outpatient (REF) | payer MEDICARE, MEDICAID, SELFPAY ==
--- NOTE | ~2022-07-24 | XR_ITS ---
EXAMINATION: XR ANKLE, LEFT CLINICAL INFORMATION: Pain. COMPARISON: None available. TECHNIQUE: AP, lateral, and mortise views of the left ankle. FINDINGS: Bony alignment and mineralization are normal. The ankle mortise is intact. No fracture, dislocation or left ankle joint effusion is seen. Boehler's angle is normal. There is a large plantar calcaneal spur. There is no focal soft tissue swelling, gas or foreign body. There are infrapopliteal atherosclerotic calcification. XR/XR ankle LT min 3V IMPRESSION: 1. No fracture, dislocation or left ankle joint effusion is seen. 2. There is a large plantar calcaneal spur.
== END 2022-07-24 12:16 | disposition home or self-care (01) ==
LOC: HO.XRAY 12:15
PROVIDERS: PCP Internal Medicine; Visit Provider Internal Medicine
DX: M25.572 Pain in left ankle and joints of left foot (principal)
CPT/HCPCS: 73610

== ENCOUNTER 2022-10-30 09:18 | Outpatient (REF) | payer MEDICARE, MEDICAID, SELFPAY ==
[2022-10-30 09:34] LABS: MANUAL DIFF FLAG NO
[2022-10-30 10:52] LABS: Appearance Urine Clear; Color Urine Yellow; Glucose Urine UA Negative (Negative); Leukocyte Esterase Urine Trace (Negative); Nitrite Urine Negative (Negative); Specific Gravity - Urine 1.015 (1.005-1.025); UMIC TRIGGER UACC YES; Urine Blood Negative (Negative); Urine Ketones Negative (Negative); Urine Protein Negative (Neg-Trace)
[2022-10-30 11:00] LABS: Bacteria Urine None Seen (None Seen); Hyaline Casts Urine 0-2 /LPF (0-2); RBC Urine 0-2 /HPF (0-2); Squamous Epithelial Cell Urine 0-2 /HPF (0-2); WBC Urine 0-5 /HPF (0-5)
[2022-10-30 11:02] LABS: Basophils Absolute Auto 0.1 X10*3/uL (0.0-0.2); Basophils Percent Auto 0.9 % (0-2); Eosinophils Absolute Auto 0.4 X10*3/uL (0.0-0.4); Eosinophils Percent Auto 3.5 % (0-4); Hematocrit 44.9 % (37.0-47.0); Hemoglobin 14.6 g/dl (12.0-16.0); Imm Gran Abs Auto 0.11 X10*3/uL (0.00-0.03); Lymphocytes Absolute Auto 1.9 X10*3/uL (1.2-4.9); Lymphocytes Percent Auto 17.1 % (20-40); Mean Corpuscular HGB Conc 32.5 g/dl (31.0-35.0); Mean Corpuscular Hemoglobin 30.1 pg (27.0-33.0); Mean Corpuscular Volume 92.6 fL (80.0-98.0); Mean Platelet Volume 9.7 fL (9.4-12.3); Monocytes Absolute Auto 0.6 X10*3/uL (0.1-1.2); Monocytes Percent Auto 5.4 % (2-11); Neutrophils Absolute Auto 8.1 x10*3/uL (2.0-8.3); Neutrophils Percent Auto 72.1 % (45-73); Platelet Count 237 X10*3/uL (160-400); Red Blood Count 4.85 X10*6/uL (4.20-5.50); Red Cell Distribution Width 14.2 % (11.0-16.0); White Blood Count 11.2 X10*3/uL (4.8-10.8)
[2022-10-30 11:15] LABS: Estimated Average Glucose 166 mg/dL; Hemoglobin A1c % 7.4 %
[2022-10-30 11:15] LABS: Creatinine Urine 68.03 mg/dL; Microalbum/Creatinine Ratio Ur 30.8 ug/mg cr
[2022-10-30 12:33] LABS: TSH reflex Free T4 1.02 uIU/mL (0.32-4.0)
[2022-10-30 12:36] LABS: Anion Gap 12 (12-20)
[2022-10-30 12:41] LABS: Alanine Aminotransferase 29 U/L (0-31); Albumin Level 4.3 g/dL (3.5-5.0); Alkaline Phosphatase 89 U/L (39-117); Aspartate Amino Transferase 22 U/L (5-31); Bilirubin Total 0.8 mg/dL (0.0-1.0); Blood Urea Nitrogen 15 mg/dL (9-16); Calcium 9.2 mg/dL (8.4-10.2); Carbon Dioxide 27 mmol/L (22-29); Chloride 105 mmol/L (96-108); Cholesterol 134 mg/dL; Estimated Glomerular Filt Rate > 60; Glucose Fasting 163 mg/dL (60-99); HDL Cholesterol 43 mg/dL; LDL Cholesterol Calculated 70 mg/dl; Potassium 4.2 mmol/L (3.3-5.1); Sodium 140 mmol/L (135-145); Total Protein 7.7 g/dL (6.5-8.0); Triglycerides 107 mg/dL
== END 2022-10-30 09:19 | disposition home or self-care (01) ==
LOC: HO.LAB 09:18
PROVIDERS: PCP Internal Medicine; Visit Provider Internal Medicine
DX: E55.9 Vitamin D deficiency, unspecified (principal); E78.00 Pure hypercholesterolemia, unspecified; I10 Essential (primary) hypertension; E11.9 Type 2 diabetes mellitus without complications; R30.0 Dysuria
CPT/HCPCS: 36415; 80053; 80061; 81001; 82043; 82306; 83036; 84443; 85025

== ENCOUNTER 2023-04-20 09:05 | Outpatient (REF) | payer MEDICARE, MEDICAID, SELFPAY ==
[2023-04-20 09:42] LABS: MANUAL DIFF FLAG NO
[2023-04-20 10:03] LABS: Basophils Absolute Auto 0.1 X10*3/uL (0.0-0.2); Eosinophils Absolute Auto 0.5 X10*3/uL (0.0-0.4); Eosinophils Percent Auto 5.3 % (0-4); Hematocrit 45.5 % (37.0-47.0); Hemoglobin 14.8 g/dl (12.0-16.0); Lymphocytes Absolute Auto 1.6 X10*3/uL (1.2-4.9); Lymphocytes Percent Auto 15.9 % (20-40); Mean Corpuscular HGB Conc 32.5 g/dl (31.0-35.0); Mean Corpuscular Hemoglobin 30.1 pg (27.0-33.0); Mean Corpuscular Volume 92.5 fL (80.0-98.0); Mean Platelet Volume 9.4 fL (9.4-12.3); Monocytes Absolute Auto 0.7 X10*3/uL (0.1-1.2); Monocytes Percent Auto 6.6 % (2-11); Neutrophils Absolute Auto 7.2 x10*3/uL (2.0-8.3); Neutrophils Percent Auto 70.2 % (45-73); Platelet Count 220 X10*3/uL (160-400); Red Blood Count 4.92 X10*6/uL (4.20-5.50); Red Cell Distribution Width 14.6 % (11.0-16.0); White Blood Count 10.2 X10*3/uL (4.8-10.8)
[2023-04-20 10:55] LABS: Alanine Aminotransferase 39 U/L (0-31); Albumin Level 4.2 g/dL (3.5-5.0); Alkaline Phosphatase 88 U/L (39-117); Anion Gap 14 (12-20); Aspartate Amino Transferase 33 U/L (5-31); Bilirubin Total 0.6 mg/dL (0.0-1.0); Blood Urea Nitrogen 12 mg/dL (9-16); Calcium 9.6 mg/dL (8.4-10.2); Carbon Dioxide 24 mmol/L (22-29); Chloride 106 mmol/L (96-108); Cholesterol 166 mg/dL (<200); Estimated Glomerular Filt Rate > 60; Glucose Fasting 212 mg/dL (60-99); HDL Cholesterol 43 mg/dL (>40); LDL Cholesterol Calculated 95 mg/dL (<100); Potassium 4.3 mmol/L (3.3-5.1); Sodium 140 mmol/L (135-145); Total Protein 7.5 g/dL (6.5-8.0); Triglycerides 141 mg/dL (<150)
[2023-04-20 11:08] LABS: Estimated Average Glucose 220 mg/dL; Hemoglobin A1c % 9.3 % (<6.0)
[2023-04-20 11:10] LABS: Folate 15.1 ng/mL (> or = 4.0); Vitamin B12 1733 pg/mL (200-900)
[2023-04-20 11:11] LABS: Appearance Urine Clear; Color Urine Yellow; Glucose Urine UA >=1000 mg/dL (Negative); Leukocyte Esterase Urine Negative (Negative); Nitrite Urine Negative (Negative); Specific Gravity - Urine 1.015 (1.005-1.025); UMIC TRIGGER UACC YES; Urine Blood Negative (Negative); Urine Ketones Negative (Negative); Urine Protein Negative (Neg-Trace)
[2023-04-20 11:17] LABS: TSH reflex Free T4 0.88 uIU/mL (0.32-4.0); Vitamin D 25-OH Total 49.6 ng/mL (>30)
[2023-04-20 11:52] LABS: Bacteria Urine None Seen (None Seen); Hyaline Casts Urine 0-2 /LPF (0-2); RBC Urine 0-2 /HPF (0-2); Squamous Epithelial Cell Urine 0-2 /HPF (0-2); WBC Urine 0-5 /HPF (0-5)
[2023-04-20 12:27] LABS: Creatinine Urine 43.95 mg/dL; Microalbum/Creatinine Ratio Ur 22.7 ug/mg cr (<30)
== END 2023-04-20 09:06 | disposition home or self-care (01) ==
LOC: HO.LAB 09:05
PROVIDERS: PCP Internal Medicine; Visit Provider Internal Medicine
DX: E11.9 Type 2 diabetes mellitus without complications (principal); E78.00 Pure hypercholesterolemia, unspecified; E55.9 Vitamin D deficiency, unspecified; I10 Essential (primary) hypertension; E53.8 Deficiency of other specified B group vitamins; R30.0 Dysuria
CPT/HCPCS: 36415; 80053; 80061; 81001; 82043; 82306; 82570; 82607; 82746; 83036; 84443; 85025

== ENCOUNTER 2023-04-21 14:18 | Outpatient (AMB) | payer MEDICARE, MEDICAID, SELFPAY ==
[2023-04-21 14:27] VITALS: BP 140/86; PULSE 89; O2SAT 96; BMI 29.5
--- NOTE | 2023-04-21 14:27 | A.OFFPC_ITS ---
Vital Signs 04/21/23 14:27 Height 5 ft Weight 151 lb BMI 29.5 BP 140/86 H Blood Pressure Location Lt brachial Position Sitting Pulse 89 Pulse Source Pulse Oximeter Pulse Oximetry (%) 96 Oxygen Delivery Method Room Air Intake Visit Reasons: hyperlipidemia, DM Rod Placer Required: No Accompanied by: Self / Same As Patient Allergies dulaglutide [Trulicity] Adverse Reaction (Unknown, Verified 07/24/23 11:06) diarrhea and abdominal pain Medication List - Last Reconciled 04/21/23 by Abdulkadir Schulte MD acetaminophen-codeine 300-60 mg 1 tab PO BID-TID PRN 15 days aspirin 81 mg PO DAILY [BLADDER PADS (moderate) Use as directed up to 8 pads / day ] blood sugar diagnostic (FreeStyle Lite Strips) daily; blood sugar diagnostic (FreeStyle Lite Strips) As directed once a day blood-glucose meter (FreeStyle Lite Meter kit) As directed calcium carbonate (Calcium Antacid) 200 mg PO BID cholecalciferol (vitamin D3) (Vitamin D3) 25 mcg PO DAILY cyclobenzaprine 10 mg PO BEDTIME PRN 1 month dextromethorphan-guaifenesin 10-100 mg/5 mL 10 mL PO Q4-6H PRN 7 days flash glucose scanning reader (Client24Style Tristen 2 [place]) test daily guaifenesin ER (Mucinex) 600 mg PO Q12H PRN 10 days ibuprofen 800 mg PO TID PRN lancets As directed lancets (FreeStyle Lancets) As directed once a day metformin 1,000 mg PO BID nicotine (polacrilex) 4 mg PO Q2H PRN nystatin 1 appl topical BID 10 days simvastatin 40 mg PO BEDTIME sitagliptin phosphate (Januvia) 100 mg PO DAILY Tobacco use date assessed: 04/21/23 Fall risk assessment: 1 Fall in past year Last assessed Fall Risk: 04/21/23 Dental Screening Dental Screen Date: 04/21/23 Did you have a dental visit in the last 12 months?: No Did you have a dental problem in the last 6 months where you did not have access to dental care?: No Was dental information given to patient?: No HPI hyperlipidemia, DM HPI Details Patient comes in today for her follow up visit States that she has been experiencing recurrent stiffness and cramping over her right arm lately; she has not noticed any swelling in her arm recently Admits that she has not been eating right lately States that she has been feeling depressed over the past few months and blames her dietary indiscretions on her depression She denies any headaches or dizziness Denies any chest pains, no SOB No nausea/vomiting, no abdominal pain No change in bowel habits noted States that her chronic neck pains and joint pains remain adequately controlled on her current Rx - needs her Tylenol #3 Rx refilled Had her follow up labs done yesterday - to discuss her results She is also requesting for a referral to have her hearing checked - feels that her hearing has been declining a lot lately [facility] Medical History Inflammatory osteoarthritis Right elbow pain Intermittent pain and swelling of hand Elevated LFTs Osteoarthritis Overweight (BMI 25.0-29.9) Smoker Osteopenia Vitamin D deficiency Cervical spine arthritis Elevated blood pressure reading Pure hypercholesterolemia Type 2 diabetes mellitus without complications Surgical History History of cataract surgery History of umbilical hernia repair Family History Father No problems noted. Mother No problems noted. Other Arthritis Social History Housing: House Alcohol intake: current Alcohol intake frequency: holidays/special occasions only Patient Tobacco Use Status: Current everyday Tobacco user Tobacco use type: Cigarette Cigarette Packs Per Day: 1 Cigarettes Per Day: 20 e-Cigarette/Vaping Use: Never Used Second Hand Smoke Exposure: Yes service: No Current occupational status: disabled Cognitive needs: No Hearing needs: No Vision needs: Yes Questionnaire PHQ-9 Over the last 2 weeks, how often have you been bothered by any of the following problems? 1. Little interest or pleasure in doing things: not at all 2. Feeling down, depressed, or hopeless: more than half the days 3. Trouble falling or staying asleep, or sleeping too much: not at all 4. Feeling tired or having little energy: not at all 5. Poor appetite or overeating: not at all 6. Feeling bad about yourself - or that you are a failure or have let yourself or your family down: not at all 7. Trouble concentrating on things, such as reading the newspaper or watching television: not at all 8. Moving or speaking so slowly that other people could have noticed. Or the opposite - being so fidgety or restless that you have been moving around a lot more than usual: not at all 9. Thoughts that you would be better off or of hurting yourself in some way: not at all Total score: 2 Depression Screening Interpretation: Positive (mild) Depression Screening Follow-up: Existing condition and Declines treatment Depression Screening Done: Yes 27281 - PHQ-9 Billing: Yes Source: Developed by Drs. Binh Gonsalez, Tamara Monsalve, Mateus De Oliveira and colleagues, with an educational bianca from [employer]. Thrive Questionnaire Date Thrive assessed: 04/21/23 I am a: Parent/Caregiver What is your living situation today?: I have a steady place to live Within the past 12 months, did the food you bought not last and you didn't have the money to get more?: Never true Within the past 12 months, did you worry whether your food would run out before you got money to buy more?: Never true Do you have trouble paying for medicines?: No Do you have trouble getting transportation to medical appointments?: No Do you have trouble paying your heating and electricity bill?: No Do you have trouble taking care of your child, family member or friend?: No Do you have trouble with day-to-day activities such as bathing, preparing meals, shopping, managing finances, etc.?: No Are you currently unemployed and looking for a job?: No Are you interested in more education?: No Please select the resources that you would like help with: None Currently or been in a relationship where the following occur: no concerns re ported AUDIT C Alcohol Use Questionnaire (AUDIT-C) 1. How often do you have a drink containing alcohol?: Never 3. How often do you have six or more drinks on one occasion?: Never Total Score: 0 Score Reviewed/Action Taken: Yes RASHMI-7 AMB Questionnaire RASHMI-7 Date RASHMI - 7 assessed: 04/21/23 Feeling nervous, anxious, or on edge: 1 = Several days Not being able to stop or control worryin = Several days Worrying too much about different things: 1 = Several days Trouble relaxin = Several days Being so restless that it is hard to sit still: 1 = Several days Becoming easily annoyed or irritable: 0 = Not at all Feeling afraid as if something awful might happen: 0 = Not at all Total RASHMI-7 score (0-4 normal; 5-9 mild; 10-14 moderate; 15-21 severe): 5 Source: Developed by Drs. Binh Gonsalez, Tamara Monsalve, Mateus De Oliveira and colleagues, with an educational bianca from [employer]. Review of Systems Const Denies chills, Reports fatigue, Denies fever(s) and Denies headache(s) ENT Denies dysphagia, Denies dizziness, Denies otalgia, Denies headache(s), Reports hearing loss (in both ears - feels that this is increasing lately;thinks ears are blocked), Reports neck pain (chronic), Denies odynophagia and Denies sore throat Card Denies chest pain, Denies palpitations and Denies dyspnea Resp Denies cough, Denies dyspnea and Denies wheezing GI Denies abdominal pain, Denies constipation, Denies dysphagia, Denies heartburn, Denies diarrhea, Denies nausea, Denies odynophagia and Denies vomiting Denies nocturia, Denies dysuria and Denies urinary urgency Musc Denies back pain, Reports deformity (all fingers on both hands), Reports arthralgias (left shoulder; fingers on both hands; increased over left ankle laterally) and Reports neck pain (chronic) Skin/Breast Denies rash Neuro Denies dizziness and Denies headache(s) Psych Reports depression Endo Reports fatigue and Denies palpitations Aller/Immun Denies wheezing Physical exam (Primary Care) Vital Signs: Last Vital Signs Pulse 89 04/21/23 14:27 BP 140/86 H 04/21/23 14:27 Pulse Ox 96 04/21/23 14:27 Oxygen Delivery Method Room Air 04/21/23 14:27 BMI result Body Mass Index 29.5 Tobacco/Smoking Status: Tobacco use Status Tobacco use date assessed 04/21/23 04/21/23 14:33 Patient Tobacco Use Status Current everyday Tobacco 04/21/23 14:33 Tobacco use type Cigarette 04/21/23 14:33 e-Cigarette/Vaping Use Never Used 04/21/23 14:33 PHQ-9: PHQ-9 Score PHQ-9: Total score 2 04/21/23 16:45 Depression Screening Interpretation: Positive (mild) Depression Screening Follow-up: Existing condition and Declines treatment Thrive Assessment: Date of Thrive Assessment Date Thrive assessed 04/21/23 04/21/23 14:33 Currently or been in a relationship where the following occur: no concerns reported Const General: no acute distress and alert HENMT Ears: TM's normal bilaterally and EAC's normal Throat: Yes posterior oropharynx normal and Yes tonsils normal (no TP congestion noted) Neck Neck: Yes no lymphadenopathy and Yes supple Resp Auscultation: clear to auscultation bilaterally, no rales, rhonchi (occasional, over both lung maciel) and no wheezes Cardio Rate: regular rate Rhythm: regular rhythm Heart sounds: no murmurs GI Palpation (GI): Soft to palpation and nontender Auscultation: normal bowel sounds Back/Spine/Pelvis Cervical Spine: Cervical spine tenderness (chronic) Thoracic/Lumbar Spine: thoracic and lumbar spine normal to inspection Extrem Other: (+) scattered varicose veins on both lower legs General: Yes no clubbing, cyanosis or edema Right upper extremity: Extremity exam: right hand Details: abnormal ROM of finger (all fingers stiff with (+) bony enlargements over IP joints on exam) Left upper extremity: hand Details: abnormal ROM of finger (all fingers stiff with (+) bony enlargements over IP joints on exam) Left lower extremity: ankle Details: tenderness Location: of the lateral malleolus; no swelling Results Reviewed Results Reviewed: Laboratory Tests 04/20/23 04/20/23 09:37 09:40 WBC 10.2 Hgb 14.8 Hct 45.5 Plt Count 220 Sodium 140 Potassium 4.3 Creatinine 0.85 Estimated GFR > 60 Fasting Glucose 212 H Hemoglobin A1c % 9.3 H Calcium 9.6 AST 33 H ALT 39 H Triglycerides 141 Cholesterol 166 LDL Cholesterol, Calc 95 HDL Cholesterol 43 Vitamin B12 1733 H 25-OH Vitamin D Total 49.6 TSH 0.88 Ur Specific [place] 1.015 Urine Protein Negative Urine Glucose (UA) >=1000 H Urine Blood Negative Microalb/Creat Ratio 22.7 Assessment and Plan Assessment & Plan (1) Type 2 diabetes mellitus without complications: Code(s): E11.9 - Type 2 diabetes mellitus without complications Qualifiers: Diabetes mellitus terminal superintendent insulin use: without terminal superintendent use Qualified Code(s): E11.9 - Type 2 diabetes mellitus without complications Plan: HgbA1c was at 9.3% on her labs done yesterday (was at 7.4% a few months ago in October 2022) - goal is < 7.0% Reinforced diabetic diet Continue Metformin 1000 mg BID and Januvia 100 mg QD; will start her additionally on Farxiga 10 mg QD Will recheck her FBS and HgbA1c in 3 months for follow-up (2) Pure hypercholesterolemia: Code(s): E78.00 - Pure hypercholesterolemia, unspecified Plan: Results of her labs done yesterday reviewed and discussed with patient - she is cautioned that her cholesterol levels have increased from previous Reinforced low cholesterol diet Continue Simvastatin 40 mg QD Will recheck her labs and fasting lipids in 3 months for follow-up (3) Elevated blood pressure reading: Code(s): R03.0 - Elevated blood-pressure reading, without diagnosis of hypertension Plan: Advised that her BP is elevated today Reinforced low-sodium diet She is reminded to continue monitoring her blood pressure regularly and that we may need to start her on BP meds if her BP continues to stay elevated frequently (4) Elevated LFTs: Code(s): R79.89 - Other specified abnormal findings of blood chemistry Plan: She is cautioned that her LFTs have again increased slightly on her recent labs and that this is most likely related to her weight and her recent increase in her cholesterol level Will continue to monitor her LFTs regularly (5) Osteoarthritis: Comment: (+) Heberden's nodes and Lia's nodes present on multiple fingers on both hands Code(s): M19.90 - Unspecified osteoarthritis, unspecified site Qualifiers: Osteoarthritis location: unspecified site Osteoarthritis type: primary Qualified Code(s): M19.91 - Primary osteoarthritis, unspecified site Plan: Per request, was referred to Dr. Daniel Zambrano at [facility] in [place] for rheumatology evaluation and management previously but states that she was never contacted for an appointment Have advised patient to try seeing rheumatology here at [facility] instead and she agrees to do so - referral to [facility] Rheumatology done (6) Cervical spine arthritis: Code(s): M47.812 - Spondylosis without myelopathy or radiculopathy, cervical region Plan: S/P physical therapy last year with some improvement of symptoms Continue Acetaminophen-Codeine #4 tablet, 300-60 mg, 1 tablet 1 to 2 times a day only as needed for severe pain and Ibuprofen 800 mg 3 times a day with food as needed (7) Calcaneal spur, left foot: Code(s): M77.32 - Calcaneal spur, left foot Plan: Seen on left ankle x-rays done back in July 2022 Advised that this is most likely what was causing her ankle pain She has been referred to podiatry for further evaluation and management - to follow up with podiatry as scheduled (8) Osteopenia: Code(s): M85.80 - Other specified disorders of bone density and structure, unspecified site Qualifiers: Osteopenia location: unspecified Qualified Code(s): M85.80 - Other specified disorders of bone density and structure, unspecified site Plan: Continue Calcium tablets? 500 mg twice a day BMD done in 2020 revealed (+) osteopenia - will continue to monitor BMD regularly - will need repeat BMD ordered next year (9) Vitamin D deficiency: Code(s): E55.9 - Vitamin D deficiency, unspecified Plan: Corrected - continue Vitamin D3 1000 units QD (10) Hearing impairment: Code(s): H91.90 - Unspecified hearing loss, unspecified ear Qualifiers: Hearing loss type: unspecified Laterality: bilateral Qualified Code(s): H91.93 - Unspecified hearing loss, bilateral Plan: Per request, will refer her for hearing evaluation (11) Smoker: Code(s): F17.200 - Nicotine dependence, unspecified, uncomplicated Plan: Counseled again on smoking cessation Continue Nicorette gum to help her quit smoking (12) Overweight (BMI 25.0-29.9): Code(s): E66.3 - Overweight Plan: Reinforced diet/exercise as tolerated/lose weight Plan Follow up in 3 months Orders: Orders Comprehensive [place]. Panel Fast 3 Months E78.00 - Pure hypercholesterolemia, unspecified Lipid Panel 3 Months E78.00 - Pure hypercholesterolemia, unspecified Hemoglobin A1c 3 Months E11.9 - Type 2 diabetes mellitus without complications Complete Blood Count Auto Diff 3 Months I10 - Essential (primary) hypertension Referrals Speech and Hearing Referral H91.90 - Unspecified hearing loss, unspecified ear Rheumatology Referral M19.90 - Unspecified osteoarthritis, unspecified site Medications: New Farxiga (dapagliflozin propanediol) 10 mg PO QAM 30 tabs 3RF 30 days NS Refilled acetaminophen-codeine 300-60 mg 1 tab PO BID-TID PRN 30 tabs 0RF pain 15 days M47.812 - Spondylosis without myelopathy or radiculopathy, cervical region, M19.90 - Unspecified osteoarthritis, unspecified site Coding Level of Care Code Est Pt Level 4 (26292) Diagnoses Type 2 diabetes mellitus without complication, without long-term current use of insulin E11.9 Diabetes mellitus [facility] insulin use: without [facility] use Pure hypercholesterolemia E78.00 Elevated blood pressure reading R03.0 Elevated LFTs R79.89 Primary osteoarthritis, unspecified site M19.91 Osteoarthritis location: unspecified site Osteoarthritis type: primary Cervical spine arthritis M47.812 Calcaneal spur, left foot M77.32 Osteopenia, unspecified location M85.80 Osteopenia location: unspecified Vitamin D deficiency E55.9 Bilateral hearing loss, unspecified hearing loss type H91.93 Hearing loss type: unspecified Laterality: bilateral Smoker F17.200 Overweight (BMI 25.0-29.9) E66.3
== END 2023-04-21 15:16 | disposition home or self-care (01) ==
PROVIDERS: PCP Internal Medicine; Visit Provider Internal Medicine
DX: E11.9 Type 2 diabetes mellitus without complications (principal); E78.00 Pure hypercholesterolemia, unspecified; R03.0 Elevated blood-pressure reading, without diagnosis of hypertension; R79.89 Other specified abnormal findings of blood chemistry; M19.91 Primary osteoarthritis, unspecified site; M47.812 Spondylosis without myelopathy or radiculopathy, cervical region; M77.32 Calcaneal spur, left foot; M85.80 Other specified disorders of bone density and structure, unspecified site; E55.9 Vitamin D deficiency, unspecified; H91.93 Unspecified hearing loss, bilateral; F17.200 Nicotine dependence, unspecified, uncomplicated; E66.3 Overweight
CPT/HCPCS: 99214

== ENCOUNTER 2023-05-29 10:18 | Outpatient (REF) | payer MEDICARE, MEDICAID, SELFPAY ==
--- NOTE | ~2023-05-29 | XR_ITS ---
STUDY: Right elbow, bilateral hands INDICATION: Right elbow and bilateral hand pain COMPARISON: None TECHNIQUE: 3 view right shoulder, 3 view right hand, 3 view left hand FINDINGS: Right elbow: No fracture or dislocation. Alignment is maintained. Olecranon spurring and calcification posterior to the olecranon on lateral view. Right hand: Diffuse demineralization. Interphalangeal joint space narrowings, spurring, DIP and PIP joint deformities with soft tissue prominence. Degenerative changes first carpometacarpal joint. No fracture. Left hand: Degenerative change first carpometacarpal joint. Diffuse interphalangeal joint space narrowings and spurring. DIP and PIP deformities with soft tissue swelling. Small calcification radial aspect of the second PIP. XR/XR hand RT min 3V IMPRESSION: Question calcific tendinopathy right elbow. Advanced osteoarthritic changes bilateral hands.
--- NOTE | ~2023-05-29 | XR_ITS ---
STUDY: Right elbow, bilateral hands INDICATION: Right elbow and bilateral hand pain COMPARISON: None TECHNIQUE: 3 view right shoulder, 3 view right hand, 3 view left hand FINDINGS: Right elbow: No fracture or dislocation. Alignment is maintained. Olecranon spurring and calcification posterior to the olecranon on lateral view. Right hand: Diffuse demineralization. Interphalangeal joint space narrowings, spurring, DIP and PIP joint deformities with soft tissue prominence. Degenerative changes first carpometacarpal joint. No fracture. Left hand: Degenerative change first carpometacarpal joint. Diffuse interphalangeal joint space narrowings and spurring. DIP and PIP deformities with soft tissue swelling. Small calcification radial aspect of the second PIP. XR/XR elbow RT min 3V IMPRESSION: Question calcific tendinopathy right elbow. Advanced osteoarthritic changes bilateral hands.
--- NOTE | ~2023-05-29 | XR_ITS ---
STUDY: Right elbow, bilateral hands INDICATION: Right elbow and bilateral hand pain COMPARISON: None TECHNIQUE: 3 view right shoulder, 3 view right hand, 3 view left hand FINDINGS: Right elbow: No fracture or dislocation. Alignment is maintained. Olecranon spurring and calcification posterior to the olecranon on lateral view. Right hand: Diffuse demineralization. Interphalangeal joint space narrowings, spurring, DIP and PIP joint deformities with soft tissue prominence. Degenerative changes first carpometacarpal joint. No fracture. Left hand: Degenerative change first carpometacarpal joint. Diffuse interphalangeal joint space narrowings and spurring. DIP and PIP deformities with soft tissue swelling. Small calcification radial aspect of the second PIP. XR/XR hand LT min 3V IMPRESSION: Question calcific tendinopathy right elbow. Advanced osteoarthritic changes bilateral hands.
== END 2023-05-29 10:19 | disposition home or self-care (01) ==
LOC: HO.XRAY 10:18
PROVIDERS: PCP Internal Medicine; Visit Provider Nurse Practitioner Family
DX: M79.89 Other specified soft tissue disorders (principal); M19.90 Unspecified osteoarthritis, unspecified site; M25.521 Pain in right elbow; M79.641 Pain in right hand; M79.642 Pain in left hand
CPT/HCPCS: 36415; 73080; 73130; 85652; 86038; 86140; 86200; 86235; 86431; 99202

== ENCOUNTER 2023-05-29 10:18 | Outpatient (AMB) | payer MEDICARE, MEDICAID, SELFPAY ==
[2023-05-29 10:28] VITALS: BP 130/60; PULSE 62; TEMP 36.1; O2SAT 95; BMI 28.6
--- NOTE | 2023-05-29 10:28 | MHC.OFFVIS ---
Intake Vital Signs 05/29/23 10:28 Height 5 ft Weight 146 lb 9.718 oz BMI 28.6 BP 130/60 Blood Pressure Location Rt brachial Position Sitting Pulse 62 Pulse Source Pulse Oximeter Temp 97 F Temp Source Skin Pulse Oximetry (%) 95 Oxygen Delivery Method Room Air Intake Visit Reasons: osteoarthritis Intake Note: New pt, internally referred by PCP, presents today for OA. c/o hand pain, back pain, all over . Would like to talk to someone about some vein disease . Reports recent falls due to dizziness x 1 mo Account Manager Required: No Accompanied by: Self / Same As Patient Allergies dulaglutide [Trulicity] Adverse Reaction (Unknown, Verified 05/29/23 10:31) diarrhea and abdominal pain HPI HPI Comments History of Present Illness Details Ms. Rodriguez 77 yoF here for evaluation of multiple joint pain. She was a former patient of the office over 5 years ago and at that time was diagnosed with osteoarthritis. She is managed with Tylenol#3 and Ibuprofen 800mg TID PRN. She reports needing medication for pain for her hands, and back. She says her fingers get swollen and hurts. [facility] Medical History (Updated 06/01/23 @ 17:28 by FRANCO Quarles) Inflammatory osteoarthritis Right elbow pain Intermittent pain and swelling of hand Elevated LFTs Osteoarthritis Overweight (BMI 25.0-29.9) Smoker Osteopenia Vitamin D deficiency Cervical spine arthritis Elevated blood pressure reading Pure hypercholesterolemia Type 2 diabetes mellitus without complications Surgical History History of cataract surgery History of umbilical hernia repair Family History (Updated 05/29/23 @ 10:36 by RAJANI Valencia) Father No problems noted. Mother No problems noted. Other Arthritis Social History Housing: House Alcohol intake: current Alcohol intake frequency: holidays/special occasions only Patient Tobacco Use Status: Current everyday Tobacco user Tobacco use type: Cigarette Cigarette Packs Per Day: 1 e-Cigarette/Vaping Use: Never Used Second Hand Smoke Exposure: Yes service: No Current occupational status: disabled Cognitive needs: No Hearing needs: No Vision needs: Yes Review of Systems Const All systems reviewed & are unremarkable except as noted in HPI and below Physical Exam Vital Signs: Last Vital Signs Temp 97 F 05/29/23 10:28 Pulse 62 05/29/23 10:28 BP 130/60 05/29/23 10:28 Pulse Ox 95 05/29/23 10:28 Oxygen Delivery Method Room Air 05/29/23 10:28 BMI result Body Mass Index 28.6 Vital signs reviewed. Constitutional: Non-toxic appearing. No acute distress. Well-developed and well-nourished for patient baseline. HEENT: Normocephalic and atraumatic. External auditory canals without erythema or edema bilaterally. Dry mucous membranes. No pharyngeal erythema or exudates. Skin: Warm and dry. No rashes or lesions noted. Neck: Full and painless range of motion. No cervical lymphadenopathy. Cardio: Regular rate and rhythm. No murmurs, gallops, or rubs. No lower extremity edema. No JVD. Pulmonary: No respiratory distress. No accessory muscle usage. Scattered expiratory wheezing. Musculoskeletal: Normal range of motion in joints throughout the body. Tenderness at right elbow but full ROM with no warmth or redness Neuro: Alert and oriented x4. No focal deficits appreciated. gait normal for patient Hands:? Normal pain-free range of motion with some thickening of all PIP joints with diffused tenderness and swelling. Also at the thumb IP increased tenderness.? There is no thenar atrophy or sensory loss.?This is more bony than soft tissue swelling. There is some mild tenderness and pain with motion at the 4th PIP. There is no flexor tendon triggering, thenar atrophy or sensory loss.? No other areas of tenderness or swelling.?Unable to make fists Results Reviewed Results Reviewed: Laboratory Tests 04/20/23 05/29/23 05/29/23 09:40 11:40 11:40 ESR 14 AST 33 H ALT 39 H C-Reactive Protein 0.17 Rheumatoid Factor < 13.0 Cycl Citrul Peptide IgG <16 Assessment & Plan Assessment & Plan (1) Intermittent pain and swelling of hand: Code(s): M79.643 - Pain in unspecified hand; M79.89 - Other specified soft tissue disorders (2) Inflammatory osteoarthritis: Comment: Heberden's nodes and Lia's nodes present on multiple fingers on both hands Code(s): M19.90 - Unspecified osteoarthritis, unspecified site (3) Elevated LFTs: Code(s): R79.89 - Other specified abnormal findings of blood chemistry (4) Right elbow pain: Code(s): M25.521 - Pain in right elbow Plan #Hand Pain/Inflammatory OA: Ms. Rodriguez is here for primary hand pain and swelling. Given the defromity, tenderness and trace swelling to her hand IP joints, this is inflammatory OA. Her inflammatory markers, ESR/CRP are WNL and recent labs for CCP and RF were negative and so her hands are less likely caused by an autoimmune etiology. I will obtain xrays to further evaluate for erosive features where central vs peripherral erosion would make the distinction. She should continue with her current regimen as it provides relief. I discussed with patient that this is my recommendation at this time. #Elevated LFts: She has elevated AST/ALT that may be from the Tylenol#3 and should be monitored. #Right Elbow Pain:Obtain xray I spent 30 minutes with reviewing chart and historical records, evaluation patient and documenting. Orders: Orders XR hand LT min 3V 05/29/23 M25.521 - Pain in right elbow, M79.643 - Pain in unspecified hand, M79.89 - Other specified soft tissue disorders C Reactive Protein 05/29/23 M25.521 - Pain in right elbow, M79.643 - Pain in unspecified hand, M79.89 - Other specified soft tissue disorders MIKE Reflex Titer and Pattern 05/29/23 M25.521 - Pain in right elbow, M79.643 - Pain in unspecified hand, M79.89 - Other specified soft tissue disorders Anti Extractable Nuclear Ag 05/29/23 M25.521 - Pain in right elbow, M79.643 - Pain in unspecified hand, M79.89 - Other specified soft tissue disorders XR hand RT min 3V 05/29/23 M25.521 - Pain in right elbow, M79.643 - Pain in unspecified hand, M79.89 - Other specified soft tissue disorders Rheumatoid Factor 05/29/23 M25.521 - Pain in right elbow, M79.643 - Pain in unspecified hand, M79.89 - Other specified soft tissue disorders Cyclic Citrullinated Peptide 05/29/23 M25.521 - Pain in right elbow, M79.643 - Pain in unspecified hand, M79.89 - Other specified soft tissue disorders Erythrocyte Sedimentation Rate 05/29/23 M25.521 - Pain in right elbow, M79.643 - Pain in unspecified hand, M79.89 - Other specified soft tissue disorders XR elbow RT min 3V 05/29/23 M25.521 - Pain in right elbow, M79.643 - Pain in unspecified hand, M79.89 - Other specified soft tissue disorders Coding Level of Care Code New Pt Level 4 (75423) Diagnoses Intermittent pain and swelling of hand M79.643; M79.89 Inflammatory osteoarthritis M19.90 Elevated LFTs R79.89 Right elbow pain M25.521
== END 2023-05-29 11:24 | disposition home or self-care (01) ==
PROVIDERS: PCP Internal Medicine; Visit Provider Nurse Practitioner Family
DX: M79.643 Pain in unspecified hand (principal); M79.89 Other specified soft tissue disorders; M19.90 Unspecified osteoarthritis, unspecified site; R79.89 Other specified abnormal findings of blood chemistry; M25.521 Pain in right elbow
CPT/HCPCS: 99204

== ENCOUNTER 2023-05-29 11:36 | Outpatient (REF) | payer MEDICARE, MEDICAID, SELFPAY ==
[2023-05-29 14:18] LABS: Rheumatoid Factor < 13.0 IU/mL (<15.0)
[2023-05-29 14:30] LABS: Erythrocyte Sedimentation Rate 14 MM/HR (0-20)
[2023-05-29 14:50] LABS: C Reactive Protein 0.17 mg/dL (< or = 0.50)
[2023-06-01 14:23] LABS: Anti Nuclear Antibody Screen NEGATIVE (NEGATIVE)
[2023-06-01 14:48] LABS: Cyclic Citrullinated Peptide <16 UNITS
[2023-06-02 20:48] LABS: SM/Ribonucleoprotein Ab <1.0 NEG AI (<1.0 NEG); Smith Protein <1.0 NEG AI (<1.0 NEG)
== END 2023-05-29 11:37 | disposition home or self-care (01) ==
LOC: HO.10HDL 11:36
PROVIDERS: Visit Provider Nurse Practitioner Family
DX: Z13.89 Encounter for screening for other disorder (principal)
CPT/HCPCS: 36415; 85652; 86038; 86140; 86200; 86235; 86431

== ENCOUNTER 2023-06-12 13:42 | Outpatient (AMB) | payer OTHER, MEDICAID, SELFPAY ==
--- NOTE | 2023-06-12 14:26 | A.OFFVIS_ITS ---
Intake Vital Signs 06/12/23 14:33 Height 5 ft Weight 143 lb 1.28 oz BMI 27.9 BP 110/56 L Blood Pressure Location Rt brachial Position Sitting Pulse 101 H Pulse Source Pulse Oximeter Temp 97 F Temp Source Skin Pulse Oximetry (%) 95 Oxygen Delivery Method Room Air Intake Visit Reasons: F/U Intake Note: Patient last seen 05/29/23 by Quinn, presents today for follow up and test results. Community Service Technician Required: No Accompanied by: Self / Same As Patient Allergies dulaglutide [Trulicity] Adverse Reaction (Unknown, Verified 06/12/23 14:35) diarrhea and abdominal pain HPI HPI Comments History of Present Illness Details Ms. Rodriguez presents today to review labs and xrays. Inital Visit: Ms. Rodriguez 77 yoF here for evaluation of multiple joint pain. She was a former patient of the office over 5 years ago and at that time was diagnosed with osteoarthritis. She is managed with Tylenol#3 and Ibuprofen 800mg TID PRN. She reports needing medication for pain for her hands, and back. She says her fingers get swollen and hurts. [facility] Medical History (Updated 06/01/23 @ 17:28 by Jannette Ball, IDA-BRISEYDA) Inflammatory osteoarthritis Right elbow pain Intermittent pain and swelling of hand Elevated LFTs Osteoarthritis Overweight (BMI 25.0-29.9) Smoker Osteopenia Vitamin D deficiency Cervical spine arthritis Elevated blood pressure reading Pure hypercholesterolemia Type 2 diabetes mellitus without complications Surgical History History of cataract surgery History of umbilical hernia repair Family History (Updated 05/29/23 @ 10:36 by RAJANI Valencia) Father No problems noted. Mother No problems noted. Other Arthritis Social History Housing: House Alcohol intake: current Alcohol intake frequency: holidays/special occasions only Patient Tobacco Use Status: Current everyday Tobacco user Tobacco use type: Cigarette Cigarette Packs Per Day: 1 e-Cigarette/Vaping Use: Never Used Second Hand Smoke Exposure: Yes service: No Current occupational status: disabled Cognitive needs: No Hearing needs: No Vision needs: Yes Physical Exam Vital Signs: Last Vital Signs Temp 97 F 06/12/23 14:33 Pulse 101 H 06/12/23 14:33 BP 110/56 L 06/12/23 14:33 Pulse Ox 95 06/12/23 14:33 Oxygen Delivery Method Room Air 06/12/23 14:33 BMI result Body Mass Index 27.9 Results Reviewed Results Reviewed: Ordering Physician: Jannette Ball Date of Service: 05/29/23 Procedure(s): XR elbow RT min 3V Accession Number(s): [id number] cc: Abdulkadir Schulte MD; Jannette Ball~ STUDY: Right elbow, bilateral hands INDICATION: Right elbow and bilateral hand pain COMPARISON: None TECHNIQUE: 3 view right shoulder, 3 view right hand, 3 view left hand FINDINGS: Right elbow: No fracture or dislocation. Alignment is maintained. Olecranon spurring and calcification posterior to the olecranon on lateral view. Right hand: Diffuse demineralization. Interphalangeal joint space narrowings, spurring, DIP and PIP joint deformities with soft tissue prominence. Degenerative changes first carpometacarpal joint. No fracture. Left hand: Degenerative change first carpometacarpal joint. Diffuse interphalangeal joint space narrowings and spurring. DIP and PIP deformities with soft tissue swelling. Small calcification radial aspect of the second PIP. XR/XR elbow RT min 3V IMPRESSION: Question calcific tendinopathy right elbow. Advanced osteoarthritic changes bilateral hands. Laboratory Tests 05/29/23 11:40 ESR 14 C-Reactive Protein 0.17 Rheumatoid Factor < 13.0 Cycl Citrul Peptide IgG <16 MIKE Screen NEGATIVE Sm (Hodgson) Antibody <1.0 NEG SM/MERCURY PURIFIER IgG Antibody <1.0 NEG Assessment & Plan Assessment & Plan (1) Intermittent pain and swelling of hand: Code(s): M79.643 - Pain in unspecified hand; M79.89 - Other specified soft tissue disorders (2) Inflammatory osteoarthritis: Comment: Heberden's nodes and Lia's nodes present on multiple fingers on both hands Code(s): M19.90 - Unspecified osteoarthritis, unspecified site (3) Right elbow pain: Code(s): M25.521 - Pain in right elbow Plan #Hand Pain/Inflammatory OA: Ms. Rodriguez is here for primary hand pain and swelling. Given the defromity, tenderness and trace swelling to her hand IP joints, this is inflammatory OA. Her inflammatory markers, ESR/CRP are WNL and recent labs for CCP and RF were negative and so her hands are less likely caused by an autoimmune etiology. The hand xrays did not show erosive features but highlighted demineralization which can be see in the setting of inflammatory OA. She should continue with her current regimen of Tylenol#3 and Ibuprofen 800mg TID PRN which says does provide relief. I discussed with patient that this is my recommendation at this time. She may also use warmth such as wax or parafin treatments. I spent 15 minutes with reviewing chart and historical records, evaluation patient and documenting. Coding Level of Care Code Est Pt Level 2 (14274) Diagnoses Intermittent pain and swelling of hand M79.643; M79.89 Inflammatory osteoarthritis M19.90 Right elbow pain M25.521
[2023-06-12 14:33] VITALS: BP 110/56; PULSE 101; TEMP 36.1; O2SAT 95; BMI 27.9
== END 2023-06-12 14:39 | disposition home or self-care (01) ==
LOC: HO.RHE 13:42
PROVIDERS: PCP Internal Medicine; Visit Provider Nurse Practitioner Family
DX: M79.643 Pain in unspecified hand (principal); M79.89 Other specified soft tissue disorders; M19.90 Unspecified osteoarthritis, unspecified site; M25.521 Pain in right elbow
CPT/HCPCS: 99212

== ENCOUNTER → 2023-06-12 13:42 | Outpatient (BNVA) | payer MEDICARE, MEDICAID, SELFPAY | PROVIDERS: PCP Internal Medicine; Visit Provider Nurse Practitioner Family | DX: M79.643 Pain in unspecified hand (principal); M79.89 Other specified soft tissue disorders; M19.90 Unspecified osteoarthritis, unspecified site; M25.521 Pain in right elbow | CPT/HCPCS: 99212 ==

== ENCOUNTER 2023-07-23 09:56 | Outpatient (REF) | payer MEDICARE, MEDICAID, SELFPAY ==
[2023-07-23 10:29] LABS: MANUAL DIFF FLAG NO
[2023-07-23 10:41] LABS: Basophils Absolute Auto 0.1 X10*3/uL (0.0-0.2); Basophils Percent Auto 0.6 % (0-2); Eosinophils Absolute Auto 0.3 X10*3/uL (0.0-0.4); Eosinophils Percent Auto 2.1 % (0-4); Hemoglobin 15.6 g/dl (12.0-16.0); Imm Gran Abs Auto 0.09 X10*3/uL (0.00-0.03); Imm Gran Pct Auto 0.6 % (0.0-0.4); Lymphocytes Absolute Auto 1.9 X10*3/uL (1.2-4.9); Lymphocytes Percent Auto 12.8 % (20-40); Mean Corpuscular HGB Conc 32.5 g/dl (31.0-35.0); Mean Corpuscular Hemoglobin 29.6 pg (27.0-33.0); Mean Corpuscular Volume 91.1 fL (80.0-98.0); Mean Platelet Volume 9.4 fL (9.4-12.3); Monocytes Absolute Auto 0.7 X10*3/uL (0.1-1.2); Neutrophils Absolute Auto 11.4 x10*3/uL (2.0-8.3); Neutrophils Percent Auto 78.9 % (45-73); Platelet Count 239 X10*3/uL (160-400); Red Blood Count 5.27 X10*6/uL (4.20-5.50); Red Cell Distribution Width 14.6 % (11.0-16.0); White Blood Count 14.5 X10*3/uL (4.8-10.8)
[2023-07-23 10:46] LABS: Appearance Urine Clear; Color Urine Yellow; Glucose Urine UA >=1000 mg/dL (Negative); Leukocyte Esterase Urine Small (1+) (Negative); Nitrite Urine Negative (Negative); PH 5.5 (5.0-9.0); UMIC TRIGGER UACC YES; Urine Blood Negative (Negative); Urine Ketones Negative (Negative); Urine Protein Negative (Neg-Trace)
[2023-07-23 10:52] LABS: Bacteria Urine Trace (None Seen); Hyaline Casts Urine 0-2 /LPF (0-2); RBC Urine 0-2 /HPF (0-2); UACC Culture Trigger YES
[2023-07-23 11:19] LABS: Estimated Average Glucose 169 mg/dL; Hemoglobin A1c % 7.5 % (<6.0)
[2023-07-23 11:31] LABS: Alanine Aminotransferase 29 U/L (0-31); Albumin Level 4.1 g/dL (3.5-5.0); Alkaline Phosphatase 102 U/L (39-117); Anion Gap 14 (12-20); Aspartate Amino Transferase 26 U/L (5-31); Bilirubin Total 0.6 mg/dL (0.0-1.0); Blood Urea Nitrogen 13 mg/dL (9-16); Calcium 9.9 mg/dL (8.4-10.2); Carbon Dioxide 23 mmol/L (22-29); Chloride 104 mmol/L (96-108); Cholesterol 126 mg/dL (<200); Estimated Glomerular Filt Rate > 60; Glucose Fasting 115 mg/dL (60-99); HDL Cholesterol 42 mg/dL (>40); LDL Cholesterol Calculated 68 mg/dL (<100); Potassium 4.4 mmol/L (3.3-5.1); Sodium 137 mmol/L (135-145); Total Protein 7.5 g/dL (6.5-8.0); Triglycerides 84 mg/dL (<150)
== END 2023-07-23 09:57 | disposition home or self-care (01) ==
LOC: HO.LAB 09:56
PROVIDERS: PCP Internal Medicine; Visit Provider Internal Medicine
DX: I10 Essential (primary) hypertension (principal); E11.9 Type 2 diabetes mellitus without complications; E78.00 Pure hypercholesterolemia, unspecified
CPT/HCPCS: 36415; 80053; 80061; 81001; 83036; 85025; 87086

== ENCOUNTER 2023-07-24 10:31 | Outpatient (AMB) | payer MEDICARE, MEDICAID, SELFPAY ==
--- NOTE | 2023-07-24 10:36 | MHC.PC.OV ---
Vital Signs 07/24/23 10:39 Height 5 ft Weight 138 lb 2 oz BMI 27.0 BP 120/60 Blood Pressure Location Lt brachial Position Sitting Pulse 88 Pulse Source Pulse Oximeter Pulse Oximetry (%) 95 Oxygen Delivery Method Room Air Intake Visit Reasons: DM, hyperlipidemia, OA Intake Note: Patient is here to follow up on DM, Hyperlipidemia, OA. 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: No Cardiovascular Physician Assistant: Present Accompanied by: Daughter Allergies dulaglutide [Trulicity] Adverse Reaction (Unknown, Verified 07/24/23 11:06) diarrhea and abdominal pain Medication List - Last Reconciled 07/24/23 by Abdulkadir Schulte MD acetaminophen-codeine 300-60 mg 1 tab PO BID-TID PRN 15 days aspirin 81 mg PO DAILY [BLADDER PADS (moderate) Use as directed up to 8 pads / day ] blood sugar diagnostic (FreeStyle Lite Strips) daily; blood sugar diagnostic (FreeStyle Lite Strips) As directed once a day blood-glucose meter (FreeStyle Lite Meter kit) As directed calcium carbonate (Calcium Antacid) 200 mg PO BID cholecalciferol (vitamin D3) (Vitamin D3) 25 mcg PO DAILY Farxiga (dapagliflozin propanediol) 10 mg PO QAM 30 days NS flash glucose scanning reader (FreeStyle Tristen 2 [place]) test daily glucosamine HCl 1,500 mg PO DAILY ibuprofen 800 mg PO TID PRN lancets As directed lancets (FreeStyle Lancets) As directed once a day metformin 1,000 mg PO BID [id number] 1 tab PO DAILY nystatin 1 appl topical BID 10 days simvastatin 40 mg PO BEDTIME sitagliptin phosphate (Januvia) 100 mg PO DAILY Tobacco use date assessed: 07/24/23 Fall risk assessment: No Falls in past year Last assessed Fall Risk: 07/24/23 Dental Screening Dental Screen Date: 07/24/23 Did you have a dental visit in the last 12 months?: Yes Did you have a dental problem in the last 6 months where you did not have access to dental care?: No Was dental information given to patient?: Patient has dentist HPI DM, hyperlipidemia, OA HPI Details Patient comes in today for her follow up visit States that she feels okay States that she has recently decided to sell her house and move/relocate to [place] as soon as she is able to She denies any headaches or dizziness Denies any chest pains, no SOB No nausea/vomiting, no abdominal pain No change in bowel habits noted States that her chronic neck pains and joint pains remain adequately controlled on her current Rx - needs her Tylenol with codeine and Nystatin powder Rx refilled Had her follow up labs done yesterday - to discuss her results Adds that she's had hearing issues / loss for years and is requesting for a referral to see ENT next door for further evaluation as she now realizes that she needs hearing aids [facility] Medical History Inflammatory osteoarthritis Right elbow pain Intermittent pain and swelling of hand Elevated LFTs Osteoarthritis Overweight (BMI 25.0-29.9) Smoker Osteopenia Vitamin D deficiency Cervical spine arthritis Elevated blood pressure reading Pure hypercholesterolemia Type 2 diabetes mellitus without complications Surgical History History of cataract surgery History of umbilical hernia repair Family History Father No problems noted. Mother No problems noted. Other Arthritis Social History Housing: House Alcohol intake: current Alcohol intake frequency: holidays/special occasions only Patient Tobacco Use Status: Current everyday Tobacco user Tobacco use type: Cigarette Cigarette Packs Per Day: 1 Cigarettes Per Day: 20 e-Cigarette/Vaping Use: Never Used Second Hand Smoke Exposure: Yes service: No Current occupational status: disabled Cognitive needs: No Hearing needs: No Vision needs: Yes Questionnaire PHQ-9 Over the last 2 weeks, how often have you been bothered by any of the following problems? 1. Little interest or pleasure in doing things: not at all 2. Feeling down, depressed, or hopeless: not at all 3. Trouble falling or staying asleep, or sleeping too much: not at all 4. Feeling tired or having little energy: not at all 5. Poor appetite or overeating: not at all 6. Feeling bad about yourself - or that you are a failure or have let yourself or your family down: not at all 7. Trouble concentrating on things, such as reading the newspaper or watching television: not at all 8. Moving or speaking so slowly that other people could have noticed. Or the opposite - being so fidgety or restless that you have been moving around a lot more than usual: not at all 9. Thoughts that you would be better off or of hurting yourself in some way: not at all Total score: 0 Depression Screening Interpretation: Negative Depression Screening Done: Yes 33521 - PHQ-9 Billing: Yes Source: Developed by Drs. Binh Gonsalez, Tamara Monsalve, Mateus De Oliveira and colleagues, with an educational bianca from [employer]. Thrive Questionnaire Date Thrive assessed: 07/24/23 I am a: Patient What is your living situation today?: I have a steady place to live Within the past 12 months, did the food you bought not last and you didn't have the money to get more?: Never true Within the past 12 months, did you worry whether your food would run out before you got money to buy more?: Never true Do you have trouble paying for medicines?: No Do you have trouble getting transportation to medical appointments?: No Do you have trouble paying your heating and electricity bill?: No Do you have trouble taking care of your child, family member or friend?: No Do you have trouble with day-to-day activities such as bathing, preparing meals, shopping, managing finances, etc.?: No Are you currently unemployed and looking for a job?: No Are you interested in more education?: No Currently or been in a relationship where the following occur: no concerns reported THRIVE Score: 0 AUDIT C Alcohol Use Questionnaire (AUDIT-C) 1. How often do you have a drink containing alcohol?: Never Total Score: 0 Score Reviewed/Action Taken: Yes RASHMI-7 AMB Questionnaire RASHMI-7 Date RASHMI - 7 assessed: 07/24/23 Feeling nervous, anxious, or on edge: 0 = Not at all Not being able to stop or control worryin = Not at all Worrying too much about different things: 0 = Not at all Trouble relaxin = Not at all Being so restless that it is hard to sit still: 0 = Not at all Becoming easily annoyed or irritable: 0 = Not at all Feeling afraid as if something awful might happen: 0 = Not at all Total RASHMI-7 score (0-4 normal; 5-9 mild; 10-14 moderate; 15-21 severe): 0 Source: Developed by Drs. Binh Gonsalez, Tamara Monsalve, Mateus De Oliveira and colleagues, with an educational bianca from [employer]. Review of Systems Const Denies chills, Reports fatigue, Denies fever(s) and Denies headache(s) ENT Denies dysphagia, Denies dizziness, Denies otalgia, Denies headache(s), Reports hearing loss (in both ears - feels that this is increasing lately;thinks ears are blocked), Reports neck pain (chronic), Denies odynophagia and Denies sore throat Card Denies chest pain, Denies palpitations and Denies dyspnea Resp Denies cough, Denies dyspnea and Denies wheezing GI Denies abdominal pain, Denies constipation, Denies dysphagia, Denies heartburn, Denies diarrhea, Denies nausea, Denies odynophagia and Denies vomiting Denies nocturia, Denies dysuria and Denies urinary urgency Musc Denies back pain, Reports deformity (all fingers on both hands), Reports arthralgias (left shoulder; fingers on both hands; increased over left ankle laterally) and Reports neck pain (chronic) Skin/Breast Denies rash Neuro Denies dizziness and Denies headache(s) Psych Reports depression Endo Reports fatigue and Denies palpitations Aller/Immun Denies wheezing Physical exam (Primary Care) Vital Signs: Last Vital Signs Pulse 88 07/24/23 10:39 BP 120/60 07/24/23 10:39 Pulse Ox 95 07/24/23 10:39 Oxygen Delivery Method Room Air 07/24/23 10:39 BMI result Body Mass Index 27.0 Tobacco/Smoking Status: Tobacco use Status Tobacco use date assessed 07/24/23 07/24/23 10:50 Patient Tobacco Use Status Current everyday Tobacco 07/24/23 10:50 Tobacco use type Cigarette 07/24/23 10:50 e-Cigarette/Vaping Use Never Used 07/24/23 10:50 PHQ-9: PHQ-9 Score PHQ-9: Total score 0 07/24/23 10:50 Depression Screening Interpretation: Negative Thrive Assessment: Date of Thrive Assessment Date Thrive assessed 07/24/23 07/24/23 10:50 Currently or been in a relationship where the following occur: no concerns reported Const General: no acute distress and alert HENMT Ears: TM's normal bilaterally and EAC's normal Throat: Yes posterior oropharynx normal and Yes tonsils normal (no TP congestion noted) Neck Neck: Yes no lymphadenopathy and Yes supple Resp Auscultation: clear to auscultation bilaterally, no rales, rhonchi (occasional, over both lung maciel) and no wheezes Cardio Rate: regular rate Rhythm: regular rhythm Heart sounds: no murmurs GI Palpation (GI): Soft to palpation and nontender Auscultation: normal bowel sounds Back/Spine/Pelvis Cervical Spine: Cervical spine tenderness (chronic) Thoracic/Lumbar Spine: thoracic and lumbar spine normal to inspection Extrem Other: (+) scattered varicose veins on both lower legs General: Yes no clubbing, cyanosis or edema Right upper extremity: Extremity exam: right hand Details: abnormal ROM of finger (all fingers stiff with (+) bony enlargements over IP joints on exam) Left upper extremity: hand Details: abnormal ROM of finger (all fingers stiff with (+) bony enlargements over IP joints on exam) Left lower extremity: ankle Details: tenderness Location: of the lateral malleolus; no swelling Results Reviewed Results Reviewed: Laboratory Tests 04/20/23 07/23/23 07/23/23 09:37 10:23 10:23 WBC Hgb Hct Plt Count Sodium Potassium Creatinine Estimated GFR Fasting Glucose Hemoglobin A1c % Calcium AST ALT Triglycerides Cholesterol LDL Cholesterol, Calc HDL Cholesterol Ur Specific [place] 1.020 Urine Protein Negative Urine Glucose (UA) >=1000 H Urine Blood Negative Urine Nitrite Negative Ur Leukocyte Esterase Small (1+) H Microalb/Creat Ratio 22.7 07/23/23 07/23/23 10:27 10:27 WBC 14.5 H Hgb 15.6 Hct 48.0 H Plt Count 239 Sodium 137 Potassium 4.4 Creatinine 0.78 Estimated GFR > 60 Fasting Glucose 115 H Hemoglobin A1c % 7.5 H Calcium 9.9 AST 26 ALT 29 Triglycerides 84 Cholesterol 126 LDL Cholesterol, Calc 68 HDL Cholesterol 42 Ur Specific [place] Urine Protein Urine Glucose (UA) Urine Blood Urine Nitrite Ur Leukocyte Esterase Microalb/Creat Ratio Assessment and Plan Assessment & Plan (1) Type 2 diabetes mellitus without complications: Code(s): E11.9 - Type 2 diabetes mellitus without complications Qualifiers: Diabetes mellitus skilled nursing insulin use: without skilled nursing use Qualified Code(s): E11.9 - Type 2 diabetes mellitus without complications Plan: HgbA1c was at 7.5% on her labs done yesterday (was at 9.3% back in April 2023) - goal is < 7.0% Reinforced diabetic diet Continue Metformin 1000 mg BID and Januvia 100 mg QD Will recheck her FBS and HgbA1c in 3 months for follow-up (2) Pure hypercholesterolemia: Code(s): E78.00 - Pure hypercholesterolemia, unspecified Plan: Results of her labs done yesterday reviewed and discussed with patient Reinforced low cholesterol diet Continue Simvastatin 40 mg QD Will recheck her labs and fasting lipids in 3 months for follow-up (3) Elevated blood pressure reading: Code(s): R03.0 - Elevated blood-pressure reading, without diagnosis of hypertension Plan: Reinforced low-sodium diet Patient is reminded to continue monitoring her blood pressure regularly (4) Elevated LFTs: Code(s): R79.89 - Other specified abnormal findings of blood chemistry Plan: Resolved; her LFTs have remained normal on her recent labs Will continue to monitor her LFTs regularly (5) Osteoarthritis: Comment: (+) Heberden's nodes and Lia's nodes present on multiple fingers on both hands Code(s): M19.90 - Unspecified osteoarthritis, unspecified site Qualifiers: Osteoarthritis location: unspecified site Osteoarthritis type: primary Qualified Code(s): M19.91 - Primary osteoarthritis, unspecified site Plan: Per request, was referred to Dr. Daniel Zambrano at the [facility] in [place] for rheumatology evaluation and management but states that she was never contacted for an appointment Advised that we can redo the referral if she still wants to pursue this - states that she will call us back for referral if she decides she wants to still go to the [facility] for consultation (6) Cervical spine arthritis: Code(s): M47.812 - Spondylosis without myelopathy or radiculopathy, cervical region Plan: S/P physical therapy last year with some improvement of symptoms Continue Acetaminophen-Codeine #4 tablet, 300-60 mg, 1 tablet 1 to 2 times a day only as needed for severe pain (Rx refilled) and Ibuprofen 800 mg 3 times a day with food as needed (7) Calcaneal spur, left foot: Code(s): M77.32 - Calcaneal spur, left foot Plan: Seen on left ankle x-rays done last year in July 2022 - this is most likely what was causing her ankle pain Follow up with podiatry as scheduled (8) Osteopenia: Code(s): M85.80 - Other specified disorders of bone density and structure, unspecified site Qualifiers: Osteopenia location: unspecified Qualified Code(s): M85.80 - Other specified disorders of bone density and structure, unspecified site Plan: Continue Calcium tablets? 500 mg twice a day BMD done in 2020 revealed (+) osteopenia - will continue to monitor BMD regularly - will need repeat BMD ordered later this year (9) Vitamin D deficiency: Code(s): E55.9 - Vitamin D deficiency, unspecified Plan: Continue Vitamin D3 1000 units QD (10) Hearing impairment: Code(s): H91.90 - Unspecified hearing loss, unspecified ear Qualifiers: Hearing loss type: unspecified Laterality: bilateral Qualified Code(s): H91.93 - Unspecified hearing loss, bilateral Plan: Per request, will refer her to ENT for further evaluation and management (11) Smoker: Code(s): F17.200 - Nicotine dependence, unspecified, uncomplicated Plan: Counseled again on smoking cessation Continue Nicorette gum to help her quit smoking (12) Overweight (BMI 25.0-29.9): Code(s): E66.3 - Overweight Plan: Reinforced diet/exercise as tolerated/lose weight Plan Follow up in 3 months Orders: Orders Complete Blood Count Auto Diff 3 Months D64.9 - Anemia, unspecified Comprehensive [place]. Panel Fast 3 Months E78.00 - Pure hypercholesterolemia, unspecified Microalbumin, Random (w Creat) 3 Months E11.9 - Type 2 diabetes mellitus without complications TSH reflex Free T4 3 Months E78.00 - Pure hypercholesterolemia, unspecified UA CC w/rflx Micro + Cult 3 Months R30.0 - Dysuria Hemoglobin A1c 3 Months E11.9 - Type 2 diabetes mellitus without complications Lipid Panel 3 Months E78.00 - Pure hypercholesterolemia, unspecified Vitamin D 25-OH Total 3 Months E55.9 - Vitamin D deficiency, unspecified Referrals Ear/Nose/Throat Referral H91.90 - Unspecified hearing loss, unspecified ear Medications: Refilled acetaminophen-codeine 300-60 mg 1 tab PO BID-TID PRN 30 tabs 0RF pain 15 days M19.90 - Unspecified osteoarthritis, unspecified site, M47.812 - Spondylosis without myelopathy or radiculopathy, cervical region nystatin 1 appl topical BID 60 grams 5RF 10 days L30.4 - Erythema intertrigo Coding Level of Care Code Est Pt Level 4 (01210) Diagnoses Type 2 diabetes mellitus without complication, without long-term current use of insulin E11.9 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
[2023-07-24 10:39] VITALS: BP 120/60; PULSE 88; O2SAT 95; BMI 27.0
== END 2023-07-24 11:20 | disposition home or self-care (01) ==
PROVIDERS: PCP Internal Medicine; Visit Provider Internal Medicine
DX: E11.9 Type 2 diabetes mellitus without complications (principal); E78.00 Pure hypercholesterolemia, unspecified; R03.0 Elevated blood-pressure reading, without diagnosis of hypertension; R79.89 Other specified abnormal findings of blood chemistry; M19.91 Primary osteoarthritis, unspecified site; M47.812 Spondylosis without myelopathy or radiculopathy, cervical region; M77.32 Calcaneal spur, left foot; M85.80 Other specified disorders of bone density and structure, unspecified site; E55.9 Vitamin D deficiency, unspecified; H91.93 Unspecified hearing loss, bilateral; F17.200 Nicotine dependence, unspecified, uncomplicated; E66.3 Overweight
CPT/HCPCS: 99214

== ENCOUNTER 2023-09-14 12:56 | Outpatient (REF) | payer MEDICARE, MEDICAID, SELFPAY ==
--- NOTE | 2023-09-15 09:36 | MHC.AU.MED ---
Medical Clearance for Hearing Instrumentation Date: 09/14/23 Patient Name: Jennifer Banegas Date of : 1945 Primary Care Provider: Abdulkadir Schulte MD We have seen your patient on 09/14/23 and have determined that they are a candidate for amplification (See accompanying report). Specifically, they would benefit from: Hearing aid use in both ears There is a statute that addresses Medical Evaluation Requirements prior to fitting a patient with a hearing aid. According to [place] statute 265 CMR:6.03(1), (a) General. Except as provided in 265 CMR 6.03(1)(b), a shearing supervisor shall not sell a hearing aid unless the prospective user has presented to the shearing supervisor a written statement signed by a licensed physician that states that the patient's hearing loss has been medically evaluated and the patient may be considered a candidate for a hearing aid. The medical evaluation must have taken place within the preceding six months. Please note: Due to the [place] Statute referenced above, we cannot accept a signature other than that of a licensed physician. LEASING CONSULTANT and PA signatures cannot be accepted. I am in agreement with the above recommendation. There is no medical contraindication for hearing instrumentation. Physician Signature Date Physician Name (Printed)
--- NOTE | 2023-09-15 09:47 | MHC.AU.HA1 ---
Hearing Aid Evaluation Date of Visit: 09/14/23 Historical Information: Description of Hearing: Moderate sloping to severe sensorineural hearing loss, bilaterally Current personal amplification information: BTEs or RITEs from [facility] - Misplaced Summary: Jennifer reported she was fit with hearing aids at [facility] several years ago. They were described as BTEs or RITEs; however, she never liked them as she could not manipulate the battery due to arthritis in her hands/fingers. She reportedly misplaced them. She is ready to pursue new hearing aids due to continued hearing difficulties. She wants rechargeable custom hearing aids for ease of use. No interest in bluetooth. Impressions taken, bilaterally, without incident. Will request records from [facility]. Advised if hearing aids <5 years old, will need prior approval via insurance. Hearing Aid Prescription: Based on the individual?s shared listening needs, communication environments, dexterity, desire for connectivity, and personal preferences, the following prescription for amplification has been made: Right ear: Make, Model, Color: [employer] AI 16 ITC-R Color: [place] Battery Size: Rechargeable Left ear: Left ear prescription to be same as Right Hearing Aid above: Make, Model, Color: [employer] AI 16 ITC-R Color: [place] Battery Size: Rechargeable Accessories/Assistive Technology: Field Supervisor [employer] Plan of Care: Patient wishes to purchase hearing aids as prescribed Action Taken/Action Needed: Medical Clearance to be requested from PCP/ENT. Hearing Instrument Fitting to be scheduled when materials arrive Comments: Once medical clearance is received, will need to submit prior approval through insurance if previous hearing aids purchased <5 years ago. Primary Diagnosis: H90.3 Bilateral Sensorineural Hearing Loss Signature: Provider: Florentin Hernandez, [facility]
== END 2023-09-14 12:57 | disposition home or self-care (01) ==
LOC: HO.SH 12:56
PROVIDERS: Visit Provider Internal Medicine
DX: Z01.118 Encounter for examination of ears and hearing with other abnormal findings (principal); Z46.1 Encounter for fitting and adjustment of hearing aid; H90.3 Sensorineural hearing loss, bilateral
CPT/HCPCS: 92557; 92591; V5275

== ENCOUNTER 2023-09-23 10:56 | Outpatient (AMB) | payer MEDICARE, MEDICAID, SELFPAY ==
[2023-09-23 11:00] VITALS: BP 120/62; PULSE 60; O2SAT 95; BMI 26.4
--- NOTE | 2023-09-23 11:00 | A.OFFPC_ITS ---
Vital Signs 09/23/23 11:00 Height 5 ft Weight 135 lb 0.4 oz BMI 26.4 BP 120/62 Blood Pressure Location Lt brachial Position Sitting Pulse 60 Pulse Source Pulse Oximeter Pulse Oximetry (%) 95 Oxygen Delivery Method Room Air Intake Visit Reasons: ED follow-up. Bumped head and has scab/glued area Intake Note: Patient is here to follow-up after a visit the emergency department at [facility] on 09/04/2023 Scaler Packer Required: No Allergies dulaglutide [Trulicity] Adverse Reaction (Unknown, Verified 11/16/23 11:23) diarrhea and abdominal pain Medication List - Last Reconciled 11/16/23 by Abdulkadir Schulte MD acetaminophen-codeine 300-60 mg 1 tab PO BID-TID PRN 15 days aspirin 81 mg PO DAILY [BLADDER PADS (moderate) Use as directed up to 8 pads / day ] blood sugar diagnostic (FreeStyle Lite Strips) daily; blood sugar diagnostic (FreeStyle Lite Strips) As directed once a day blood-glucose meter (FreeStyle Lite Meter kit) As directed calcium carbonate (Calcium Antacid) 200 mg PO BID cholecalciferol (vitamin D3) (Vitamin D3) 25 mcg PO DAILY [COMPRESSION STOCKINGS (Medium compression 15 to 20 mm) As directed. Would like a white pair and a black pair] Farxiga (dapagliflozin propanediol) 10 mg PO QAM 30 days NS flash glucose scanning reader (FreeStyle Tristen 2 [place]) test daily glucosamine HCl 1,500 mg PO DAILY ibuprofen 800 mg PO TID PRN lancets As directed lancets (FreeStyle Lancets) As directed once a day metformin 1,000 mg PO BID kvoxwnubbciw-diamicgi-jiliyo 1 tab PO DAILY nystatin 1 appl topical BID 10 days [rollater walker As directed] sennosides (Senna Lax) 8.6 mg PO BEDTIME PRN 30 days simvastatin 40 mg PO BEDTIME [walker As directed] Tobacco use date assessed: 09/23/23 Fall risk assessment: 2 + Falls in past year Last assessed Fall Risk: 09/23/23 Dental Screening Dental Screen Date: 09/23/23 HPI ED follow-up. Bumped head and has scab/glued area HPI Details Patient comes in today for her HDF follow up visit She went to the ER at [facility] about 3 weeks ago after she fell backwards and sustained a 1 cm laceration over the top of her head Relates that she was trying to drag a bookcase down the basement stairs when she fell and the bookcase ended up landing on top of her; she reportedly fell and hit the back of her head and her elbows She had a head CT and several x-rays / imaging studies done at the ER, all of wh ich fortunately showed no acute injuries She declined to have a staple placed on her scalp laceration and this was instead closed with Dermabond States that she currently feels okay although the top and back of her head still feels somewhat sore from where she got hit States that her elbows also still feels slightly sore but they are much better now that they were a couple of weeks ago and she is able to move her arms and elbows with no issues She denies any headaches or dizziness Denies any chest pains, no increased SOB No nausea/vomiting, no abdominal pain No change in bowel habits noted [facility] Medical History Inflammatory osteoarthritis Right elbow pain Intermittent pain and swelling of hand Elevated LFTs Osteoarthritis Overweight (BMI 25.0-29.9) Smoker Osteopenia Vitamin D deficiency Cervical spine arthritis Elevated blood pressure reading Pure hypercholesterolemia Type 2 diabetes mellitus without complications Surgical History History of cataract surgery History of umbilical hernia repair Family History Father No problems noted. Mother No problems noted. Other Arthritis Social History Housing: House Alcohol intake: current Alcohol intake frequency: holidays/special occasions only Patient Tobacco Use Status: Current everyday Tobacco user Tobacco use type: Cigarette Cigarette Packs Per Day: 1 Cigarettes Per Day: 20 e-Cigarette/Vaping Use: Never Used Second Hand Smoke Exposure: Yes service: No Current occupational status: disabled Cognitive needs: No Hearing needs: No Vision needs: Yes Questionnaire Thrive Questionnaire Date Thrive assessed: 07/24/23 AUDIT C Alcohol Use Questionnaire (AUDIT-C) 1. How often do you have a drink containing alcohol?: Never Total Score: 0 Score Reviewed/Action Taken: Yes RASHMI-7 AMB Questionnaire RASHMI-7 Date RASHMI - 7 assessed: 07/24/23 Source: Developed by Drs. Binh Gonsalez, Tamara Monsalve, Mateus De Oliveira and colleagues, with an educational bianca from [employer]. Review of Systems Const Reports fatigue, Denies fever(s) and Denies headache(s) ENT Denies dysphagia, Denies dizziness, Denies otalgia, Denies headache(s), Reports neck pain (chronic) and Denies sore throat Card Denies chest pain, Denies palpitations and Denies dyspnea Resp Denies cough, Denies dyspnea and Denies wheezing GI Denies abdominal pain, Denies dysphagia, Denies nausea and Denies vomiting Musc Denies back pain, Reports deformity (all fingers on both hands), Reports arthralgias (left shoulder; fingers on both hands; increased over left ankle laterally) and Reports neck pain (chronic) Neuro Denies dizziness and Denies headache(s) Endo Reports fatigue and Denies palpitations Aller/Immun Denies wheezing Physical exam (Primary Care) Vital Signs: Last Vital Signs Pulse 60 09/23/23 11:00 BP 120/62 09/23/23 11:00 Pulse Ox 95 09/23/23 11:00 Oxygen Delivery Method Room Air 09/23/23 11:00 BMI result Body Mass Index 26.4 Tobacco/Smoking Status: Tobacco use Status Tobacco use date assessed 09/23/23 09/23/23 11:03 Patient Tobacco Use Status Current everyday Tobacco 09/23/23 11:03 Tobacco use type Cigarette 09/23/23 11:03 e-Cigarette/Vaping Use Never Used 09/23/23 11:03 Thrive Assessment: Date of Thrive Assessment Date Thrive assessed 07/24/23 09/23/23 11:03 Const General: no acute distress and alert HENMT Other: (+) healed laceration on the top (parietal area) of the head/scalp, with no increased erythema or drainage noted Neck Neck: Yes no lymphadenopathy and Yes supple Resp Auscultation: clear to auscultation bilaterally, no rales, rhonchi (occasional, over both lung maciel) and no wheezes Cardio Rate: regular rate Rhythm: regular rhythm Heart sounds: no murmurs GI Palpation (GI): Soft to palpation and nontender Auscultation: normal bowel sounds Back/Spine/Pelvis Cervical Spine: Cervical spine tenderness (chronic) Thoracic/Lumbar Spine: thoracic and lumbar spine normal to inspection Extrem Other: (+) scattered varicose veins on both lower legs General: Yes no clubbing, cyanosis or edema Right upper extremity: elbow/forearm Details: normal ROM; no tenderness and no swelling and Extremity exam: right hand Details: abnormal ROM of finger (all fingers stiff with (+) bony enlargements over IP joints on exam) Left upper extremity: elbow/forearm Details: normal ROM; no tenderness and no swelling and hand Details: abnormal ROM of finger (all fingers stiff with (+) bony enlargements over IP joints on exam) Left lower extremity: ankle Details: tenderness Location: of the lateral malleolus; no swelling Assessment and Plan Assessment & Plan (1) Scalp laceration: Code(s): S01.01XA - Laceration without foreign body of scalp, initial encounter Qualifiers: Encounter type: sequela Qualified Code(s): S01.01XS - Laceration without foreign body of scalp, sequela Plan: Scalp wound appears well-HEALED - can continue with daily wound care for a couple of more days but no further Tx or intervention is needed S/P fall on 09/04/2023 - see HPI for details She has been advised to avoid any further similar activities in the future than can put her at risk for injuries (2) Elbow contusion: Code(s): S50.00XA - Contusion of unspecified elbow, initial encounter Qualifiers: Encounter type: sequela Laterality: unspecified laterality Qualified Code(s): S50.00XS - Contusion of unspecified elbow, sequela Plan: Resolved - no further intervention is needed or required Plan Follow up as scheduled in November 2023 Coding Level of Care Code Est Pt Level 3 (32272) Diagnoses Laceration of scalp, sequela S01.01XS Encounter type: sequela Contusion of elbow, unspecified laterality, sequela S50.00XS Encounter type: sequela Laterality: unspecified laterality
== END 2023-09-23 11:54 | disposition home or self-care (01) ==
PROVIDERS: PCP Internal Medicine; Visit Provider Internal Medicine
DX: S01.01XS Laceration without foreign body of scalp, sequela (principal); S00-T88 Injury, poisoning and certain other consequences of external causes
CPT/HCPCS: 99213

== ENCOUNTER 2023-11-13 09:05 | Outpatient (REF) | payer MEDICARE, MEDICAID, SELFPAY ==
[2023-11-13 09:21] LABS: MANUAL DIFF FLAG NO
[2023-11-13 09:40] LABS: Basophils Absolute Auto 0.1 X10*3/uL (0.0-0.2); Basophils Percent Auto 0.7 % (0-2); Eosinophils Percent Auto 8.6 % (0-4); Hematocrit 43.1 % (37.0-47.0); Hemoglobin 14.3 g/dl (12.0-16.0); Imm Gran Abs Auto 0.07 X10*3/uL (0.00-0.03); Imm Gran Pct Auto 0.6 % (0.0-0.4); Lymphocytes Absolute Auto 1.6 X10*3/uL (1.2-4.9); Lymphocytes Percent Auto 14.5 % (20-40); Mean Corpuscular HGB Conc 33.2 g/dl (31.0-35.0); Mean Corpuscular Hemoglobin 29.7 pg (27.0-33.0); Mean Corpuscular Volume 89.6 fL (80.0-98.0); Mean Platelet Volume 9.3 fL (9.4-12.3); Monocytes Absolute Auto 0.6 X10*3/uL (0.1-1.2); Monocytes Percent Auto 5.6 % (2-11); Neutrophils Absolute Auto 7.8 x10*3/uL (2.0-8.3); Platelet Count 208 X10*3/uL (160-400); Red Blood Count 4.81 X10*6/uL (4.20-5.50); Red Cell Distribution Width 15.3 % (11.0-16.0); White Blood Count 11.2 X10*3/uL (4.8-10.8)
[2023-11-13 09:57] LABS: Appearance Urine Clear; Color Urine Yellow; Glucose Urine UA 250 mg/dL (Negative); Leukocyte Esterase Urine Small (1+) (Negative); Nitrite Urine Negative (Negative); PH 5.5 (5.0-9.0); UMIC TRIGGER UACC YES; Urine Blood Negative (Negative); Urine Ketones Negative (Negative); Urine Protein Negative (Neg-Trace)
[2023-11-13 10:02] LABS: Bacteria Urine 2+ (None Seen); Hyaline Casts Urine 0-2 /LPF (0-2); RBC Urine 0-2 /HPF (0-2); Squamous Epithelial Cell Urine 0-2 /HPF (0-2); UACC Culture Trigger YES
[2023-11-13 10:30] LABS: Estimated Average Glucose 160 mg/dL; Hemoglobin A1c % 7.2 % (<6.0)
[2023-11-13 10:45] LABS: Alanine Aminotransferase 22 U/L (0-31); Alkaline Phosphatase 87 U/L (39-117); Anion Gap 13 (12-20); Aspartate Amino Transferase 18 U/L (5-31); Bilirubin Total 0.5 mg/dL (0.0-1.0); Blood Urea Nitrogen 17 mg/dL (9-16); Calcium 9.5 mg/dL (8.4-10.2); Carbon Dioxide 25 mmol/L (22-29); Chloride 105 mmol/L (96-108); Cholesterol 133 mg/dL (<200); Estimated Glomerular Filt Rate > 60; Glucose Fasting 168 mg/dL (60-99); HDL Cholesterol 45 mg/dL (>40); LDL Cholesterol Calculated 70 mg/dL (<100); Potassium 4.2 mmol/L (3.3-5.1); Sodium 139 mmol/L (135-145); Total Protein 7.1 g/dL (6.5-8.0); Triglycerides 93 mg/dL (<150)
[2023-11-13 11:02] LABS: TSH reflex Free T4 0.96 uIU/mL (0.32-4.0); Vitamin D 25-OH Total 55.2 ng/mL (>30)
[2023-11-13 11:10] LABS: Creatinine Urine 70.44 mg/dL; Microalbum/Creatinine Ratio Ur 18.4 ug/mg cr (<30)
== END 2023-11-13 09:06 | disposition home or self-care (01) ==
LOC: HO.LAB 09:05
PROVIDERS: PCP Internal Medicine; Visit Provider Internal Medicine
DX: E78.00 Pure hypercholesterolemia, unspecified (principal); E55.9 Vitamin D deficiency, unspecified; R30.0 Dysuria; E11.9 Type 2 diabetes mellitus without complications
CPT/HCPCS: 36415; 80053; 80061; 81001; 82043; 82306; 82570; 83036; 84443; 85025; 87086

== ENCOUNTER 2023-11-16 10:53 | Outpatient (AMB) | payer MEDICARE, MEDICAID, SELFPAY ==
[2023-11-16 11:03] VITALS: BP 110/50; PULSE 77; O2SAT 98; BMI 27.3
--- NOTE | 2023-11-16 11:03 | A.OFFPC_ITS ---
Vital Signs 11/16/23 11:03 Height 5 ft Weight 140 lb BMI 27.3 BP 110/50 L Blood Pressure Location Lt brachial Position Sitting Pulse 77 Pulse Source Pulse Oximeter Pulse Oximetry (%) 98 Oxygen Delivery Method Room Air Intake Visit Reasons: 3mth f/u [facility] Teacher: Present Allergies dulaglutide [Trulicity] Adverse Reaction (Unknown, Verified 11/16/23 11:23) diarrhea and abdominal pain Medication List - Last Reconciled 11/16/23 by Abdulkadir Schulte MD acetaminophen-codeine 300-60 mg 1 tab PO BID-TID PRN 15 days aspirin 81 mg PO DAILY [BLADDER PADS (moderate) Use as directed up to 8 pads / day ] blood sugar diagnostic (FreeStyle Lite Strips) daily; blood sugar diagnostic (FreeStyle Lite Strips) As directed once a day blood-glucose meter (FreeStyle Lite Meter kit) As directed calcium carbonate (Calcium Antacid) 200 mg PO BID cholecalciferol (vitamin D3) (Vitamin D3) 25 mcg PO DAILY [COMPRESSION STOCKINGS (Medium compression 15 to 20 mm) As directed. Would like a white pair and a black pair] Farxiga (dapagliflozin propanediol) 10 mg PO QAM 30 days NS flash glucose scanning reader (FreeStyle Tristen 2 [place]) test daily glucosamine HCl 1,500 mg PO DAILY ibuprofen 800 mg PO TID PRN lancets As directed lancets (FreeStyle Lancets) As directed once a day metformin 1,000 mg PO BID pbgpfqwsjzxc-sojinbbi-ebgxip 1 tab PO DAILY nystatin 1 appl topical BID 10 days [rollater walker As directed] simvastatin 40 mg PO BEDTIME [walker As directed] Tobacco use date assessed: 09/23/23 Dental Screening Dental Screen Date: 09/23/23 HPI 3mth f/u HPI Details Patient comes in today for her follow up visit States that she feels okay She denies any headaches or dizziness Denies any chest pains, no increased SOB No nausea/vomiting, no abdominal pain although she has been feeling bloated often lately as she states that she has been getting constipated off and on States that she's had to strain more than usual often lately during bowel movements and her stools often look like small pellets recently Is planning to get some OTC Metamucil but is concerned that they may not be covered by her insurance States that her chronic neck pain and joint pains remain adequately controlled on her current Rx She had her follow up labs done a few days ago - to discuss her results [facility] Medical History Inflammatory osteoarthritis Right elbow pain Intermittent pain and swelling of hand Elevated LFTs Osteoarthritis Overweight (BMI 25.0-29.9) Smoker Osteopenia Vitamin D deficiency Cervical spine arthritis Elevated blood pressure reading Pure hypercholesterolemia Type 2 diabetes mellitus without complications Surgical History History of cataract surgery History of umbilical hernia repair Family History Father No problems noted. Mother No problems noted. Other Arthritis Social History Housing: House Alcohol intake: current Alcohol intake frequency: holidays/special occasions only Patient Tobacco Use Status: Current everyday Tobacco user Tobacco use type: Cigarette Cigarette Packs Per Day: 1 Cigarettes Per Day: 20 e-Cigarette/Vaping Use: Never Used Second Hand Smoke Exposure: Yes service: No Current occupational status: disabled Cognitive needs: No Hearing needs: No Vision needs: Yes Questionnaire Thrive Questionnaire Date Thrive assessed: 07/24/23 RASHMI-7 AMB Questionnaire RASHMI-7 Date RASHMI - 7 assessed: 07/24/23 Source: Developed by Drs. Binh Gonsalez, Tamara Monsalve, Mateus De Oliveira and colleagues, with an educational bianca from [employer]. Review of Systems Const Denies chills, Reports fatigue, Denies fever(s) and Denies headache(s) ENT Denies dysphagia, Denies dizziness, Denies otalgia, Denies headache(s), Reports hearing loss (in both ears - feels this is increasing ), Reports neck pain (chronic), Denies odynophagia and Denies sore throat Card Denies chest pain, Denies palpitations and Denies dyspnea Resp Denies cough, Denies dyspnea and Denies wheezing GI Denies abdominal pain, Denies constipation, Denies dysphagia, Denies heartburn, Denies diarrhea, Denies nausea, Denies odynophagia and Denies vomiting Denies nocturia, Denies dysuria and Denies urinary urgency Musc Denies back pain, Reports deformity (all fingers on both hands), Reports arthralgias (left shoulder; fingers on both hands; increased over left ankle laterally) and Reports neck pain (chronic) Skin/Breast Denies rash Neuro Denies dizziness and Denies headache(s) Psych Reports depression Endo Reports fatigue and Denies palpitations Aller/Immun Denies wheezing Physical exam (Primary Care) Vital Signs: Last Vital Signs Pulse 77 11/16/23 11:03 BP 110/50 L 11/16/23 11:03 Pulse Ox 98 11/16/23 11:03 Oxygen Delivery Method Room Air 11/16/23 11:03 BMI result Body Mass Index 27.3 Tobacco/Smoking Status: Tobacco use Status Tobacco use date assessed 09/23/23 11/16/23 11:04 Patient Tobacco Use Status Current everyday Tobacco 11/16/23 11:04 Tobacco use type Cigarette 11/16/23 11:04 e-Cigarette/Vaping Use Never Used 11/16/23 11:04 Thrive Assessment: Date of Thrive Assessment Date Thrive assessed 07/24/23 11/16/23 11:04 Const General: no acute distress and alert HENMT Ears: TM's normal bilaterally and EAC's normal Throat: Yes posterior oropharynx normal and Yes tonsils normal (no TP congestion noted) Neck Neck: Yes no lymphadenopathy and Yes supple Resp Auscultation: clear to auscultation bilaterally, no rales, rhonchi (occasional, over both lung maciel) and no wheezes Cardio Rate: regular rate Rhythm: regular rhythm Heart sounds: no murmurs GI Palpation (GI): Soft to palpation and nontender Auscultation: normal bowel sounds Back/Spine/Pelvis Cervical Spine: Cervical spine tenderness (chronic) Thoracic/Lumbar Spine: thoracic and lumbar spine normal to inspection Extrem Other: (+) scattered varicose veins on both lower legs General: Yes no clubbing, cyanosis or edema Right upper extremity: Extremity exam: right hand Details: abnormal ROM of finger (all fingers stiff with (+) bony enlargements over IP joints on exam) Left upper extremity: hand Details: abnormal ROM of finger (all fingers stiff with (+) bony enlargements over IP joints on exam) Left lower extremity: ankle Details: tenderness Location: of the lateral malleolus; no swelling Results Reviewed Results Reviewed: Laboratory Tests 11/13/23 11/13/23 09:16 09:20 WBC 11.2 H Hgb 14.3 Hct 43.1 Plt Count 208 Sodium 139 Potassium 4.2 Creatinine 0.81 Estimated GFR > 60 Fasting Glucose 168 H Hemoglobin A1c % 7.2 H Calcium 9.5 AST 18 ALT 22 Triglycerides 93 Cholesterol 133 LDL Cholesterol, Calc 70 HDL Cholesterol 45 25-OH Vitamin D Total 55.2 TSH 0.96 Ur Specific [place] 1.020 Urine Protein Negative Urine Glucose (UA) 250 H Urine Blood Negative Urine Nitrite Negative Ur Leukocyte Esterase Small (1+) H Microalb/Creat Ratio 18.4 Assessment and Plan Assessment & Plan (1) Type 2 diabetes mellitus without complications: Code(s): E11.9 - Type 2 diabetes mellitus without complications Qualifiers: Diabetes mellitus care home insulin use: without care home use Qualified Code(s): E11.9 - Type 2 diabetes mellitus without complications Plan: Her HgbA1c has improved to 7.2% on her labs done a few days ago (HgbA1c was at 7.5% a few months ago and at 9.3% back in April 2023) - goal is < 7.0% Reinforced diabetic diet Continue Metformin 1000 mg BID and Januvia 100 mg QD Will recheck her FBS and HgbA1c in 3 months for follow-up (2) Pure hypercholesterolemia: Code(s): E78.00 - Pure hypercholesterolemia, unspecified Plan: Results of her labs done a few days ago reviewed and discussed with patient Reinforced low cholesterol diet Continue Simvastatin 40 mg QD Will recheck her labs and fasting lipids in 3 months for follow-up (3) Elevated blood pressure reading: Code(s): R03.0 - Elevated blood-pressure reading, without diagnosis of hypertension Plan: Reinforced low-sodium diet Patient is reminded to continue monitoring her blood pressure regularly (4) Elevated LFTs: Code(s): R79.89 - Other specified abnormal findings of blood chemistry Plan: Resolved; her LFTs have remained normal on her recent labs Will continue to monitor her LFTs regularly (5) Cervical spine arthritis: Code(s): M47.812 - Spondylosis without myelopathy or radiculopathy, cervical region Plan: S/P physical therapy last year with some improvement of symptoms Continue Acetaminophen-Codeine #4 tablet, 300-60 mg, 1 tablet 1 to 2 times a day only as needed for severe pain and Ibuprofen 800 mg TID with food as needed (6) Osteoarthritis: Comment: (+) Heberden's nodes and Lia's nodes present on multiple fingers on both hands Code(s): M19.90 - Unspecified osteoarthritis, unspecified site Qualifiers: Osteoarthritis location: unspecified site Osteoarthritis type: primary Qualified Code(s): M19.91 - Primary osteoarthritis, unspecified site Plan: Per request, she was previously referred to Dr. Daniel Zambrano at the [facility] in [place] for rheumatology evaluation and management but states that she was never contacted for an appointment Advised that we can redo the referral if she still wants to pursue this - states that she will call us back for referral if she decides she wants to still go to the [facility] for consultation (7) Osteopenia: Code(s): M85.80 - Other specified disorders of bone density and structure, unspecified site Qualifiers: Osteopenia location: unspecified Qualified Code(s): M85.80 - Other specified disorders of bone density and structure, unspecified site Plan: Continue Calcium tablets? 500 mg twice a day BMD done in 2020 revealed (+) osteopenia - will continue to monitor BMD regularly - will need repeat BMD ordered later this year (8) Vitamin D deficiency: Code(s): E55.9 - Vitamin D deficiency, unspecified Plan: Continue Vitamin D3 1000 units QD (9) Constipation: Code(s): K59.00 - Constipation, unspecified Qualifiers: Constipation type: unspecified constipation type Qualified Code(s): K59.00 - Constipation, unspecified Plan: Reinforced on increased oral fluids and dietary fiber to help manage her constipation Will start patient on Senna 8.6 mg Q HS PRN (10) Hearing impairment: Code(s): H91.90 - Unspecified hearing loss, unspecified ear Qualifiers: Hearing loss type: unspecified Laterality: bilateral Qualified Code(s): H91.93 - Unspecified hearing loss, bilateral Plan: Follow up with ENT as scheduled (11) Smoker: Code(s): F17.200 - Nicotine dependence, unspecified, uncomplicated Plan: Counseled again on smoking cessation Continue Nicorette gum to help her quit smoking (12) Overweight (BMI 25.0-29.9): Code(s): E66.3 - Overweight Plan: Reinforced diet/exercise as tolerated/lose weight Plan Follow up in 3 months Orders: Orders Hemoglobin A1c 3 Months E11.9 - Type 2 diabetes mellitus without complications Lipid Panel 3 Months E78.00 - Pure hypercholesterolemia, unspecified Comprehensive [place]. Panel Fast 3 Months E78.00 - Pure hypercholesterolemia, unspecified TSH reflex Free T4 3 Months E78.00 - Pure hypercholesterolemia, unspecified Vitamin B12 and Folate 3 Months E53.8 - Deficiency of other specified B group vitamins Vitamin D 25-OH Total 3 Months E55.9 - Vitamin D deficiency, unspecified Complete Blood Count Auto Diff 3 Months D64.9 - Anemia, unspecified Microalbumin, Random (w Creat) 3 Months E11.9 - Type 2 diabetes mellitus without complications UA CC w/rflx Micro + Cult 3 Months R30.0 - Dysuria Medications: New sennosides (Senna Lax) 8.6 mg PO BEDTIME 30 days PRN 30 tabs 3RF constipation Coding Level of Care Code Est Pt Level 4 (01130) Complex EM visit Add On G2211 Diagnoses Type 2 diabetes mellitus without complication, without long-term current use of insulin E11.9 Diabetes mellitus tank terminal gauger insulin use: without tank terminal gauger use Pure hypercholesterolemia E78.00 Elevated blood pressure reading R03.0 Elevated LFTs R79.89 Cervical spine arthritis M47.812 Primary osteoarthritis, unspecified site M19.91 Osteoarthritis location: unspecified site Osteoarthritis type: primary Osteopenia, unspecified location M85.80 Osteopenia location: unspecified Vitamin D deficiency E55.9 Constipation, unspecified constipation type K59.00 Constipation type: unspecified constipation type Bilateral hearing loss, unspecified hearing loss type H91.93 Hearing loss type: unspecified Laterality: bilateral Smoker F17.200 Overweight (BMI 25.0-29.9) E66.3
== END 2023-11-16 11:30 | disposition home or self-care (01) ==
PROVIDERS: PCP Internal Medicine; Visit Provider Internal Medicine
DX: E11.9 Type 2 diabetes mellitus without complications (principal); E78.00 Pure hypercholesterolemia, unspecified; R03.0 Elevated blood-pressure reading, without diagnosis of hypertension; R79.89 Other specified abnormal findings of blood chemistry; M47.812 Spondylosis without myelopathy or radiculopathy, cervical region; M19.91 Primary osteoarthritis, unspecified site; M85.80 Other specified disorders of bone density and structure, unspecified site; E55.9 Vitamin D deficiency, unspecified; K59.00 Constipation, unspecified; H91.93 Unspecified hearing loss, bilateral; F17.200 Nicotine dependence, unspecified, uncomplicated; E66.3 Overweight
CPT/HCPCS: 99214; G2211

== ENCOUNTER 2024-02-25 12:33 | Outpatient (REF) | payer MEDICARE, MEDICAID, SELFPAY ==
--- NOTE | 2024-02-25 13:37 | MHC.AU.HA2 ---
Hearing Instrument Fitting- Adult- Binaural Date of Visit: 02/25/24 Hearing Instruments Dispensed: Right Ear: Hari, Model, Color, Serial Number: Daniel VALDIVIA 16 ITC-R SN: [id number] Color: Mary Esther Key Account Director Repair Warranty: 03/17/2027 Key Account Director Loss and Damage Warranty: 03/17/2027 [facility] Service Plan: 02/24/2025 Battery Size: Rechargeable Type of Wax Guard: HearClear Left Ear: Hari, Model, Color, Serial Number: Daniel VALDIVIA 16 ITC-R SN: [id number] Color: Mary Esther Key Account Director Repair Warranty: 03/17/2027 Key Account Director Loss and Damage Warranty: 03/17/2027 [facility] Service Plan: 02/24/2025 Battery Size: Rechargeable Type of Wax Guard: HearClear Accessories/Assistive Technology: TabbedOut Custom Documentation Liaison SN: [id number] Summary of Fitting: Accompanied by daughter, Stephanie. Ran feedback analyzer and real ear measures. Comfortable at real ear settings. Discussed care, use, and rechargeability including manually turning on/off, cleaning and changing wax guard. Practiced insertion/removal. VC wheel active but no interest in use. Also no interest in bluetooth. Explained importance of daily, consistent use and acclimatization period given length of time since she has used HAs. Recommendations: A hearing instrument follow-up was scheduled. Diagnosis Code(s): Primary Diagnosis: H90.3 Bilateral Sensorineural Hearing Loss Signature: Provider: Florentin Hernandez, [facility]
== END 2024-02-25 12:34 | disposition home or self-care (01) ==
LOC: HO.HAP 12:33
PROVIDERS: Visit Provider Internal Medicine
DX: Z46.1 Encounter for fitting and adjustment of hearing aid (principal); H90.3 Sensorineural hearing loss, bilateral
CPT/HCPCS: V5011; V5020; V5160; V5259

== ENCOUNTER 2024-08-04 09:10 | Outpatient (REF) | payer MEDICARE, MEDICAID, SELFPAY ==
[2024-08-04 09:38] LABS: MANUAL DIFF FLAG NO
[2024-08-04 10:50] LABS: Basophils Absolute Auto 0.1 X10*3/uL (0.0-0.2); Eosinophils Absolute Auto 0.4 X10*3/uL (0.0-0.4); Eosinophils Percent Auto 4.2 % (0-4); Hematocrit 46.6 % (37.0-47.0); Hemoglobin 15.1 g/dl (12.0-16.0); Imm Gran Abs Auto 0.08 X10*3/uL (0.00-0.03); Imm Gran Pct Auto 0.8 % (0.0-0.4); Lymphocytes Absolute Auto 1.4 X10*3/uL (1.2-4.9); Lymphocytes Percent Auto 14.5 % (20-40); Mean Corpuscular HGB Conc 32.4 g/dl (31.0-35.0); Mean Corpuscular Hemoglobin 29.4 pg (27.0-33.0); Mean Corpuscular Volume 90.8 fL (80.0-98.0); Mean Platelet Volume 9.7 fL (9.4-12.3); Monocytes Absolute Auto 0.6 X10*3/uL (0.1-1.2); Monocytes Percent Auto 5.8 % (2-11); Neutrophils Absolute Auto 7.2 x10*3/uL (2.0-8.3); Neutrophils Percent Auto 73.7 % (45-73); Platelet Count 220 X10*3/uL (160-400); Red Blood Count 5.13 X10*6/uL (4.20-5.50); Red Cell Distribution Width 14.9 % (11.0-16.0); White Blood Count 9.8 X10*3/uL (4.8-10.8)
[2024-08-04 11:16] LABS: Estimated Average Glucose 232 mg/dL; Hemoglobin A1c % 9.7 % (<6.0); Total Hemoglobin (HGBA1C) 3939.3237 umol/L
[2024-08-04 11:21] LABS: Appearance Urine Clear; Color Urine Yellow; Glucose Urine UA 500 mg/dL (Negative); Leukocyte Esterase Urine Moderate (2+) (Negative); Nitrite Urine Negative (Negative); Specific Gravity - Urine 1.015 (1.005-1.025); UMIC TRIGGER UACC YES; Urine Blood Negative (Negative); Urine Ketones Negative (Negative); Urine Protein Negative (Neg-Trace)
[2024-08-04 11:30] LABS: Bacteria Urine 1+ (None Seen); Hyaline Casts Urine 0-2 /LPF (0-2); RBC Urine 0-2 /HPF (0-2); Squamous Epithelial Cell Urine 0-2 /HPF (0-2); UACC Culture Trigger YES
[2024-08-04 11:33] LABS: Alanine Aminotransferase 36 U/L (0-31); Albumin Level 4.1 g/dL (3.5-5.0); Alkaline Phosphatase 99 U/L (39-117); Anion Gap 14 (12-20); Aspartate Amino Transferase 31 U/L (5-31); Bilirubin Total 0.9 mg/dL (0.0-1.0); Blood Urea Nitrogen 16 mg/dL (9-16); Calcium 9.4 mg/dL (8.4-10.2); Carbon Dioxide 25 mmol/L (22-29); Chloride 106 mmol/L (96-108); Cholesterol 140 mg/dL (<200); Estimated Glomerular Filt Rate > 60; Glucose Fasting 236 mg/dL (60-99); HDL Cholesterol 38 mg/dL (>40); LDL Cholesterol Calculated 72 mg/dL (<100); Potassium 4.5 mmol/L (3.3-5.1); Sodium 140 mmol/L (135-145); TSH reflex Free T4 0.79 uIU/mL (0.32-4.0); Total Protein 7.7 g/dL (6.5-8.0); Triglycerides 150 mg/dL (<150); Vitamin D 25-OH Total 53.3 ng/mL (>30)
[2024-08-04 11:40] LABS: Creatinine Urine 58.91 mg/dL; Microalbum/Creatinine Ratio Ur 44.1 ug/mg cr (<30)
[2024-08-04 11:51] LABS: Folate 16.1 ng/mL (> or = 4.0); Vitamin B12 1343 pg/mL (200-900)
== END 2024-08-04 09:11 | disposition home or self-care (01) ==
LOC: HO.LAB 09:10
PROVIDERS: PCP Internal Medicine; Visit Provider Internal Medicine
DX: D64.9 Anemia, unspecified (principal); E78.00 Pure hypercholesterolemia, unspecified; E53.8 Deficiency of other specified B group vitamins; E11.9 Type 2 diabetes mellitus without complications; E55.9 Vitamin D deficiency, unspecified; R30.0 Dysuria
CPT/HCPCS: 36415; 80053; 80061; 81001; 82043; 82306; 82570; 82607; 82746; 83036; 84443; 85025; 87086

== ENCOUNTER 2024-08-09 12:41 | Outpatient (AMB) | payer MEDICARE, MEDICAID, SELFPAY ==
[2024-08-09 12:48] VITALS: BP 130/62; PULSE 87; O2SAT 94; BMI 28.6
--- NOTE | 2024-08-09 12:48 | MHC.PC.OV ---
Vital Signs 08/09/24 12:48 Height 5 ft Weight 146 lb 4 oz BMI 28.6 BP 130/62 Blood Pressure Location Lt brachial Position Sitting Pulse 87 Pulse Source Pulse Oximeter Pulse Oximetry (%) 94 Oxygen Delivery Method Room Air Intake Visit Reasons: 6 month f/u [employer] Analyst Required: No Accompanied by: Self / Same As Patient Allergies dulaglutide [Trulicity] Adverse Reaction (Unknown, Verified 08/09/24 13:18) diarrhea and abdominal pain Medication List - Last Reconciled 08/09/24 by Abdulkadir Schulte MD acetaminophen-codeine 300-60 mg 1 tab PO BID-TID PRN 15 days aspirin 81 mg PO DAILY [BLADDER PADS (moderate) Use as directed up to 8 pads / day ] blood sugar diagnostic (FreeStyle Lite Strips) daily; blood sugar diagnostic (FreeStyle Lite Strips) As directed once a day blood-glucose meter (FreeStyle Lite Meter kit) As directed calcium carbonate (Calcium Antacid) 200 mg PO BID cholecalciferol (vitamin D3) (Vitamin D3) 25 mcg PO DAILY [COMPRESSION STOCKINGS (Medium compression 15 to 20 mm) As directed. Would like a white pair and a black pair] Farxiga (dapagliflozin propanediol) 10 mg PO QAM 30 days NS flash glucose scanning reader (FreeStyle Rtisten 2 [place]) test daily glucosamine HCl 1,500 mg PO DAILY ibuprofen 800 mg PO TID PRN lancets As directed lancets (FreeStyle Lancets) As directed once a day metformin 1,000 mg PO BID dqixwqzrzweq-[id number]-uitfww 1 tab PO DAILY nystatin 1 appl topical BID 10 days [rollater walker As directed] sennosides (Senna Lax) 8.6 mg PO BEDTIME PRN 30 days simvastatin 40 mg PO BEDTIME sitagliptin phosphate (Januvia) 100 mg PO DAILY [walker As directed] Tobacco use date assessed: 08/09/24 Fall risk assessment: No Falls in past year Last assessed Fall Risk: 08/09/24 Dental Screening Dental Screen Date: 08/09/24 Did you have a dental visit in the last 12 months?: Yes Did you have a dental problem in the last 6 months where you did not have access to dental care?: No Was dental information given to patient?: Patient has dentist HPI 6 month f/u HPI Details Patient comes in today for her follow up visit States that she feels okay She denies any headaches or dizziness Denies any chest pains, no increased SOB but reports (+) on and off non-productive cough lately - would like to get something to help with her cough No nausea/vomiting, no abdominal pain No change in bowel habits noted - still has on and off constipation but Rx help States that her chronic neck pain and joint pains remain adequately controlled on her current Rx - will need her pain med Rx refilled today She had her follow up labs done a few days ago - to discuss her results [facility] Medical History (Updated 08/15/24 @ 00:25 by Abdulkadir Schulte MD) Diabetes mellitus Inflammatory osteoarthritis Right elbow pain Intermittent pain and swelling of hand Elevated LFTs Osteoarthritis Overweight (BMI 25.0-29.9) Smoker Osteopenia Vitamin D deficiency Cervical spine arthritis Elevated blood pressure reading Pure hypercholesterolemia Type 2 diabetes mellitus without complications Surgical History History of cataract surgery History of umbilical hernia repair Family History Father No problems noted. Mother No problems noted. Other Arthritis Social History Housing: House Alcohol intake: current Alcohol intake frequency: holidays/special occasions only Patient Tobacco Use Status: Current everyday Tobacco user Tobacco use type: Cigarette Cigarette Packs Per Day: 1 Cigarettes Per Day: 20 e-Cigarette/Vaping Use: Never Used Second Hand Smoke Exposure: Yes service: No Current occupational status: disabled Cognitive needs: No Hearing needs: No Vision needs: Yes Questionnaire PHQ-9 Over the last 2 weeks, how often have you been bothered by any of the following problems? 1. Little interest or pleasure in doing things: not at all 2. Feeling down, depressed, or hopeless: not at all 3. Trouble falling or staying asleep, or sleeping too much: not at all 4. Feeling tired or having little energy: not at all 5. Poor appetite or overeating: not at all 6. Feeling bad about yourself - or that you are a failure or have let yourself or your family down: not at all 7. Trouble concentrating on things, such as reading the newspaper or watching television: not at all 8. Moving or speaking so slowly that other people could have noticed. Or the opposite - being so fidgety or restless that you have been moving around a lot more than usual: not at all 9. Thoughts that you would be better off or of hurting yourself in some way: not at all Total score: 0 Depression Screening Interpretation: Negative Depression Screening Done: Yes 91228 - PHQ-9 Billing: Yes Source: Developed by Drs. Binh Gonsalez, Tamara Monsalve, Mateus De Oliveira and colleagues, with an educational bianca from [employer]. Thrive Questionnaire Date Thrive assessed: 08/09/24 I am a: Patient What is your living situation today?: I have a steady place to live Within the past 12 months, did the food you bought not last and you didn't have the money to get more?: Never true Within the past 12 months, did you worry whether your food would run out before you got money to buy more?: Never true Do you have trouble paying for medicines?: No Do you have trouble getting transportation to medical appointments?: No Do you have trouble paying your heating and electricity bill?: No Do you have trouble taking care of your child, family member or friend?: No Do you have trouble with day-to-day activities such as bathing, preparing meals, shopping, managing finances, etc.?: No Are you currently unemployed and looking for a job?: No Are you interested in more education?: No Please select the resources that you would like help with: None Currently or been in a relationship where the following occur: No concerns reported THRIVE Score: 0 AUDIT C Alcohol Use Questionnaire (AUDIT-C) 1. How often do you have a drink containing alcohol?: Never 3. How often do you have six or more drinks on one occasion?: Never Total Score: 0 Score Reviewed/Action Taken: Yes RASHMI-7 AMB Questionnaire RASHMI-7 Date RASHMI - 7 assessed: 08/09/24 Feeling nervous, anxious, or on edge: 0 = Not at all Not being able to stop or control worryin = Not at all Worrying too much about different things: 0 = Not at all Trouble relaxin = Not at all Being so restless that it is hard to sit still: 0 = Not at all Becoming easily annoyed or irritable: 0 = Not at all Feeling afraid as if something awful might happen: 0 = Not at all Total RASHMI-7 score (0-4 normal; 5-9 mild; 10-14 moderate; 15-21 severe): 0 Source: Developed by Drs. Binh Gonsalez, Tamara Monsalve, Mateus De Oliveira and colleagues, with an educational bianca from [employer]. Review of Systems Const Denies chills, Reports fatigue, Denies fever(s) and Denies headache(s) ENT Denies dysphagia, Denies dizziness, Denies otalgia, Denies headache(s), Reports hearing loss (in both ears - feels this is increasing ), Reports neck pain (chronic), Denies odynophagia and Denies sore throat Card Denies chest pain, Denies palpitations and Denies dyspnea Resp Denies chest congestion, Denies cough and Denies dyspnea GI Denies abdominal pain, Denies constipation, Denies dysphagia, Denies heartburn, Denies diarrhea, Denies nausea, Denies odynophagia and Denies vomiting Denies difficulty voiding, Denies nocturia, Denies dysuria and Denies urinary urgency Musc Denies back pain, Reports deformity (all fingers on both hands), Reports arthralgias (left shoulder; fingers on both hands; increased over left ankle laterally) and Reports neck pain (chronic) Skin/Breast Denies rash Neuro Denies dizziness and Denies headache(s) Psych Reports depression Endo Reports fatigue and Denies palpitations Physical exam (Primary Care) Vital Signs: Last Vital Signs Pulse 87 08/09/24 12:48 BP 130/62 08/09/24 12:48 Pulse Ox 94 08/09/24 12:48 Oxygen Delivery Method Room Air 08/09/24 12:48 BMI result Body Mass Index 28.6 Tobacco/Smoking Status: Tobacco use Status Tobacco use date assessed 08/09/24 08/09/24 12:52 Patient Tobacco Use Status Current everyday Tobacco 08/09/24 12:52 Tobacco use type Cigarette 08/09/24 12:52 e-Cigarette/Vaping Use Never Used 08/09/24 12:52 PHQ-9: PHQ-9 Score PHQ-9: Total score 0 08/09/24 13:20 Depression Screening Interpretation: Negative Thrive Assessment: Date of Thrive Assessment Date Thrive assessed 08/09/24 08/09/24 12:52 Currently or been in a relationship where the following occur: No concerns reported Const General: no acute distress and alert HENMT Ears: TM's normal bilaterally and EAC's normal Throat: Yes posterior oropharynx normal and Yes tonsils normal (no TP congestion noted) Neck Neck: Yes supple and No lymphadenopathy Thyroid: Thyroid normal Resp Auscultation: clear to auscultation bilaterally, no rales, rhonchi (occasional, over both lung maciel) and no wheezes Cardio Rate: regular rate Rhythm: regular rhythm Heart sounds: no murmurs GI Palpation (GI): Soft to palpation and nontender Auscultation: normal bowel sounds General: Yes no CVA tenderness Back/Spine/Pelvis Back: no CVA tenderness Cervical Spine: Cervical spine tenderness (chronic) Thoracic/Lumbar Spine: No lumbar spinal tenderness Skin Rashes: no rashes Extrem Other: (+) scattered varicose veins on both lower legs General: Yes no clubbing, cyanosis or edema Right upper extremity: Extremity exam: right hand Details: abnormal ROM of finger (all fingers stiff with (+) bony enlargements over IP joints on exam) Left upper extremity: hand Details: abnormal ROM of finger (all fingers stiff with (+) bony enlargements over IP joints on exam) Left lower extremity: ankle Details: tenderness Location: of the lateral malleolus; no swelling Results Reviewed Results Reviewed: Laboratory Tests 08/04/24 08/04/24 09:36 10:10 WBC 9.8 Hgb 15.1 Hct 46.6 Plt Count 220 Sodium 140 Potassium 4.5 Creatinine 0.72 Estimated GFR > 60 Fasting Glucose 236 H Hemoglobin A1c % 9.7 H Calcium 9.4 AST 31 ALT 36 H Triglycerides 150 H Cholesterol 140 LDL Cholesterol, Calc 72 HDL Cholesterol 38 L Vitamin B12 1343 H 25-OH Vitamin D Total 53.3 Folate 16.1 TSH 0.79 Ur Specific [place] 1.015 Urine Protein Negative Urine Glucose (UA) 500 H Urine Blood Negative Urine Nitrite Negative Ur Leukocyte Esterase Moderate (2+) H Microalb/Creat Ratio 44.1 H Coding Level of Care Code Est Pt Level 4 (60746) Complex EM visit Add On G2211 Diagnoses Type 2 diabetes mellitus with hyperglycemia, without long-term current use of insulin E11.65 Diabetes mellitus type: type 2 Diabetes mellitus skilled nursing insulin use: without medical terminologist use Diabetes mellitus complication status: with hyperglycemia Pure hypercholesterolemia E78.00 Elevated blood pressure reading R03.0 Elevated LFTs R79.89 Cervical spine arthritis M47.812 Primary osteoarthritis, unspecified site M19.91 Osteoarthritis location: unspecified site Osteoarthritis type: primary Osteopenia, unspecified location M85.80 Osteopenia location: unspecified Vitamin D deficiency E55.9 Constipation, unspecified constipation type K59.00 Constipation type: unspecified constipation type Bilateral hearing loss, unspecified hearing loss type H91.93 Hearing loss type: unspecified Laterality: bilateral Smoker F17.200 Overweight (BMI 25.0-29.9) E66.3 Additional Codes PHQ-9 - 21045 - PHQ-9 Billing: Yes ([id number]) Assessment & Plan Assessment & Plan (1) Diabetes mellitus: Code(s): E11.9 - Type 2 diabetes mellitus without complications Category: Medical Qualifiers: Diabetes mellitus type: type 2 Diabetes mellitus skilled nursing insulin use: without skilled nursing use Diabetes mellitus complication status: with hyperglycemia Qualified Code(s): E11.65 - Type 2 diabetes mellitus with hyperglycemia Plan: Her HgbA1c was at 9.7% on her labs done a few days ago (was previously at 7.2% back in November 2023) - goal is at least < 7.0% Reinforced diabetic diet Continue Metformin 1000 mg BID, Januvia 100 mg QD and Farxiga 10 mg QD Will recheck her FBS and HgbA1c in 3 months for follow-up (2) Pure hypercholesterolemia: Code(s): E78.00 - Pure hypercholesterolemia, unspecified Category: Social Hx Plan: Results of her labs done a few days ago reviewed and discussed with patient Reinforced low-cholesterol diet Continue Simvastatin 40 mg QD Will recheck her labs and fasting lipids in 3 months for follow-up (3) Elevated blood pressure reading: Code(s): R03.0 - Elevated blood-pressure reading, without diagnosis of hypertension Category: Medical Plan: Reinforced low-sodium diet Patient is reminded to continue monitoring her blood pressure regularly (4) Elevated LFTs: Code(s): R79.89 - Other specified abnormal findings of blood chemistry Category: Medical Plan: Resolved previously but her serum ALT is slightly elevated and AST has remained normal on her recent labs Will continue to monitor her LFTs regularly (5) Cervical spine arthritis: Code(s): M47.812 - Spondylosis without myelopathy or radiculopathy, cervical region Category: Medical Plan: S/P physical therapy last year with some improvement of symptoms Continue Acetaminophen-Codeine #4 tablet, 300-60 mg, 1 tablet 1 to 2 times a day only as needed for severe pain (Rx refilled) and Ibuprofen 800 mg TID with food as needed (6) Osteoarthritis: Comment: (+) [place]'s nodes and Lia's nodes present on multiple fingers on both hands Code(s): M19.90 - Unspecified osteoarthritis, unspecified site Category: Medical Qualifiers: Osteoarthritis location: unspecified site Osteoarthritis type: primary Qualified Code(s): M19.91 - Primary osteoarthritis, unspecified site Plan: Continue current Rx PRN for pain relief Follow up with rheumatology as scheduled (7) Osteopenia: Code(s): M85.80 - Other specified disorders of bone density and structure, unspecified site Category: Medical Qualifiers: Osteopenia location: unspecified Qualified Code(s): M85.80 - Other specified disorders of bone density and structure, unspecified site Plan: BMD done in 2020 revealed (+) osteopenia Will continue to monitor BMD regularly - will now send her for repeat BMD for follow up Patient is reminded to continue taking her Calcium tablets? 500 mg twice a day and Vitamin D supplements daily (8) Vitamin D deficiency: Code(s): E55.9 - Vitamin D deficiency, unspecified Category: Medical Plan: Continue Vitamin D3 1000 units QD (9) Constipation: Code(s): K59.00 - Constipation, unspecified Category: Medical Qualifiers: Constipation type: unspecified constipation type Qualified Code(s): K59.00 - Constipation, unspecified Plan: Reinforced increased oral fluids and dietary fiber to help manage her constipation Continue Senna 8.6 mg Q HS PRN (10) Hearing impairment: Code(s): H91.90 - Unspecified hearing loss, unspecified ear Category: Medical Qualifiers: Hearing loss type: unspecified Laterality: bilateral Qualified Code(s): H91.93 - Unspecified hearing loss, bilateral Plan: Follow up with ENT as scheduled (11) Smoker: Code(s): F17.200 - Nicotine dependence, unspecified, uncomplicated Category: Social Hx Plan: Patient is counseled again on complete smoking cessation Continue Nicorette gum to help her quit smoking Will also start her on Benzonatate PRN to help with her recurrent coughing recently (12) Overweight (BMI 25.0-29.9): Code(s): E66.3 - Overweight Category: Medical Plan: Reinforced diet/exercise as tolerated/lose weight Plan Follow up in 3 months Orders: Orders Complete Blood Count Auto Diff 3 Months D64.9 - Anemia, unspecified Lipid Panel 3 Months E78.00 - Pure hypercholesterolemia, unspecified Microalbumin, Random (w Creat) 3 Months E11.9 - Type 2 diabetes mellitus without complications TSH reflex Free T4 3 Months E78.00 - Pure hypercholesterolemia, unspecified Vitamin B12 and Folate 3 Months E53.8 - Deficiency of other specified B group vitamins Vitamin D 25-OH Total 3 Months E55.9 - Vitamin D deficiency, unspecified Comprehensive [place]. Panel Fast 3 Months E78.00 - Pure hypercholesterolemia, unspecified Hemoglobin A1c 3 Months E11.9 - Type 2 diabetes mellitus without complications UA CC w/rflx Micro + Cult 3 Months R30.0 - Dysuria XR DEXA axial skeleton Today M85.80 - Other specified disorders of bone density and structure, unspecified site, Z78.0 - Asymptomatic menopausal state Medications: New meclizine 25 mg PO TID PRN 30 tabs 0RF dizziness benzonatate 100 mg PO BID-TID PRN 30 caps 0RF cough Refilled acetaminophen-codeine 300-60 mg 1 tab PO BID-TID 15 days PRN 30 tabs 0RF pain M19.90 - Unspecified osteoarthritis, unspecified site, M47.812 - Spondylosis without myelopathy or radiculopathy, cervical region
== END 2024-08-09 13:35 | disposition home or self-care (01) ==
LOC: HO.HMCH 12:41
PROVIDERS: PCP Internal Medicine; Visit Provider Internal Medicine
DX: E11.65 Type 2 diabetes mellitus with hyperglycemia (principal); E78.00 Pure hypercholesterolemia, unspecified; R03.0 Elevated blood-pressure reading, without diagnosis of hypertension; R79.89 Other specified abnormal findings of blood chemistry; M47.812 Spondylosis without myelopathy or radiculopathy, cervical region; M19.91 Primary osteoarthritis, unspecified site; M85.80 Other specified disorders of bone density and structure, unspecified site; E55.9 Vitamin D deficiency, unspecified; K59.00 Constipation, unspecified; H91.93 Unspecified hearing loss, bilateral; F17.200 Nicotine dependence, unspecified, uncomplicated; E66.3 Overweight

== ENCOUNTER → 2024-08-09 12:41 | Outpatient (BNVA) | payer MEDICARE, MEDICAID, SELFPAY | PROVIDERS: PCP Internal Medicine; Visit Provider Internal Medicine | DX: E11.65 Type 2 diabetes mellitus with hyperglycemia (principal); E78.00 Pure hypercholesterolemia, unspecified; R03.0 Elevated blood-pressure reading, without diagnosis of hypertension; R79.89 Other specified abnormal findings of blood chemistry; M47.812 Spondylosis without myelopathy or radiculopathy, cervical region; M19.91 Primary osteoarthritis, unspecified site; M85.80 Other specified disorders of bone density and structure, unspecified site; E55.9 Vitamin D deficiency, unspecified; K59.00 Constipation, unspecified; H91.93 Unspecified hearing loss, bilateral; E66.3 Overweight; F17.200 Nicotine dependence, unspecified, uncomplicated | CPT/HCPCS: 96127; 99212 ==

== ENCOUNTER 2024-09-20 09:48 | Outpatient (REF) | payer MEDICARE, MEDICAID, SELFPAY ==
--- NOTE | ~2024-09-20 | MM_ITS ---
EXAMINATION: DXA BONE DENSITY AXIAL HISTORY: Z78.0 - Asymptomatic menopausal state TECHNIQUE: [employer] Dual energy absorptiometry (DEXA) of the lumbar spine, total left hip, and femoral neck was performed. COMPARISON: Comparison is made with the prior examination dated 01/04/2021. FINDINGS: The bone mineral density of the lumbar spine is 1.103 with a T-score of -0.5, and a Z-score of 1.1. This is indicative of normal bone mineral density. This represents a BMD change of 6.6% compared to the prior exam. This is statistically significant. The bone mineral density of the left total hip is 0.822 with a T-score of -1.5, and a Z-score of 0.4. This is indicative of osteopenia. This represents a BMD change of 0.0% compared to the prior exam. This is not statistically significant. The bone mineral density of the left femoral neck is 0.788 with a T-score of -1.8, and a Z-score of 0.2. This is indicative of osteopenia. This represents a BMD change of 0.5% compared to the prior exam. FRACTURE RISK: The FRAX index suggests a ten year probability of major osteoporotic fracture of 19.9%, and of hip fracture 8.5%. MM/XR DEXA axial skeleton IMPRESSION: Based on bone mineral density, and according to World Health Organization (WHO) criteria, the diagnosis is consistent with osteopenia. All bone density values are in grams per centimeter squared (g/cm2). Statistically, 68% of repeat scans fall within 1 SD (+/- 0.010 g/cm2 for AP spine L1-L4) and 1 SD (+/- 0.012 g/cm2 for femur total) FRAX is a trademark of the [employer]'s [place] [facility] [employer], a World Health Organization (WHO) Collaborating Center. Electronically signed by: Binh Sewell MD 09/20/2024 10:23 AM EDT
== END 2024-09-20 09:49 | disposition home or self-care (01) ==
LOC: HO.MAMMO 09:48
PROVIDERS: PCP Internal Medicine; Visit Provider Internal Medicine
DX: Z13.820 Encounter for screening for osteoporosis (principal); Z78.0 Asymptomatic menopausal state; M85.80 Other specified disorders of bone density and structure, unspecified site
CPT/HCPCS: 77080

== ENCOUNTER → 2024-09-20 10:00 | Outpatient (BNV) | payer MEDICARE, MEDICAID, SELFPAY | PROVIDERS: PCP Internal Medicine; Visit Provider Radiology Diagnostic Radiology | DX: E28.39 Other primary ovarian failure (principal) | CPT/HCPCS: 77080 ==

== ENCOUNTER 2024-12-05 09:28 | Outpatient (REF) | payer MEDICARE, MEDICAID, SELFPAY ==
[2024-12-05 09:43] LABS: MANUAL DIFF FLAG NO
[2024-12-05 10:45] LABS: Hematocrit 43.6 % (37.0-47.0); Hemoglobin 14.3 g/dl (12.0-16.0); Imm Gran Abs Auto 0.05 X10*3/uL (0.00-0.03); Imm Gran Pct Auto 0.5 % (0.0-0.4); Lymphocytes Absolute Auto 1.8 X10*3/uL (1.2-4.9); Mean Corpuscular HGB Conc 32.8 g/dl (31.0-35.0); Mean Corpuscular Hemoglobin 29.7 pg (27.0-33.0); Mean Corpuscular Volume 90.5 fL (80.0-98.0); NRBC Abs Auto 0.000 X10*3/uL (0.0-0.012); NRBC Pct Auto 0.0 /100WBC (0.0-0.2); Platelet Count 236 X10*3/uL (160-400); Red Blood Count 4.82 X10*6/uL (4.20-5.50); White Blood Count 10.8 X10*3/uL (4.8-10.8)
[2024-12-05 11:07] LABS: Hemoglobin A1C 215.0414 umol/L; Total Hemoglobin (HGBA1C) 3694.0897 umol/L
[2024-12-05 11:15] LABS: Appearance Urine Clear; Glucose Urine UA Negative (Negative); PH 6.0 (5.0-9.0); Specific Gravity - Urine 1.020 (1.005-1.025); UMIC TRIGGER UACC YES
[2024-12-05 11:23] LABS: UACC Culture Trigger YES
[2024-12-05 11:52] LABS: Alanine Aminotransferase 32 U/L (0-31); Albumin Level 4.1 g/dL (3.5-5.0); Alkaline Phosphatase 99 U/L (39-117); Anion Gap 13 (12-20); Aspartate Amino Transferase 38 U/L (5-31); Blood Urea Nitrogen 12 mg/dL (9-16); Calcium 9.3 mg/dL (8.4-10.2); Carbon Dioxide 24 mmol/L (22-29); Chloride 107 mmol/L (96-108); Cholesterol 131 mg/dL (<200); Estimated Glomerular Filt Rate > 60; HDL Cholesterol 50 mg/dL (>40); Potassium 3.9 mmol/L (3.3-5.1); Sodium 140 mmol/L (135-145); Total Protein 7.3 g/dL (6.5-8.0); Triglycerides 49 mg/dL (<150)
[2024-12-05 12:13] LABS: Folate 13.0 ng/mL (> or = 4.0); Vitamin B12 992 pg/mL (200-900)
[2024-12-05 12:45] LABS: Microalbum/Creatinine Ratio Ur 35.2 ug/mg cr (<30)
== END 2024-12-05 09:29 | disposition home or self-care (01) ==
LOC: HO.LAB 09:28
PROVIDERS: PCP Internal Medicine; Visit Provider Internal Medicine
DX: D64.9 Anemia, unspecified (principal); E78.00 Pure hypercholesterolemia, unspecified; E11.9 Type 2 diabetes mellitus without complications; E55.9 Vitamin D deficiency, unspecified; E53.8 Deficiency of other specified B group vitamins; R30.0 Dysuria
CPT/HCPCS: 36415; 80053; 80061; 81001; 81003; 82043; 82306; 82570; 82607; 82746; 83036; 84443; 85025; 87086

== ENCOUNTER 2024-12-07 12:37 | Outpatient (AMB) | payer MEDICARE, MEDICAID, SELFPAY ==
--- NOTE | 2024-12-07 12:43 | MHC.PC.OV ---
Vital Signs 12/07/24 12:44 Height 5 ft Weight 127 lb 2 oz BMI 24.8 BP 116/78 Blood Pressure Location Lt brachial Position Sitting Pulse 89 Pulse Source Pulse Oximeter Pulse Oximetry (%) 96 Oxygen Delivery Method Room Air Intake Visit Reasons: DM, hyperlipidemia Management Department Chair Required: No Accompanied by: Self / Same As Patient Allergies dulaglutide (Trulicity) Adverse Reaction (Unknown, Verified 12/07/24 13:22) diarrhea and abdominal pain Medication List - Last Reconciled 12/07/24 by Abdulkadir Schulte MD acetaminophen-codeine 300-60 mg 1 tab PO BID-TID PRN 15 days aspirin 81 mg PO DAILY benzonatate 100 mg PO BID-TID PRN [BLADDER PADS (moderate) Use as directed up to 8 pads / day ] blood sugar diagnostic (FreeStyle Lite Strips) daily; blood sugar diagnostic (FreeStyle Lite Strips) As directed once a day blood-glucose meter (FreeStyle Lite Meter kit) As directed calcium carbonate (Calcium Antacid) 200 mg PO BID cholecalciferol (vitamin D3) (Vitamin D3) 25 mcg PO DAILY [COMPRESSION STOCKINGS (Medium compression 15 to 20 mm) As directed. Would like a white pair and a black pair] Farxiga (dapagliflozin propanediol) 10 mg PO QAM 30 days NS flash glucose scanning reader (FreeStyle Tristen 2 Iuka) test daily glucosamine HCl 1,500 mg PO DAILY ibuprofen 800 mg PO TID PRN lancets As directed lancets (FreeStyle Lancets) As directed once a day meclizine 25 mg PO TID PRN metformin 1,000 mg PO BID yamenaedwwsu-cawnwjcx-ewyizr 1 tab PO DAILY nystatin 1 appl topical BID 10 days [rollater walker As directed] sennosides (Senna Lax) 8.6 mg PO BEDTIME PRN 30 days simvastatin 40 mg PO BEDTIME sitagliptin phosphate (Januvia) 100 mg PO DAILY [walker As directed] Tobacco use date assessed: 12/07/24 Fall risk assessment: No Falls in past year Last assessed Fall Risk: 12/07/24 Dental Screening Dental Screen Date: 12/07/24 Did you have a dental visit in the last 12 months?: No Did you have a dental problem in the last 6 months where you did not have access to dental care?: No Was dental information given to patient?: No HPI DM, hyperlipidemia HPI Details Patient comes in today for her follow up visit States that she feels okay She denies any headaches or dizziness Denies any chest pains, no increased SOB although her chest still feels slightly congested at times No nausea/vomiting, no abdominal pain No change in bowel habits noted - still has on and off constipation but her Rx helps keep this in check States that her chronic neck pain and joint pains remain adequately controlled on her current Rx She had her follow up labs done a couple of days ago - to discuss her results She would like to get Rx as well for a shower chair [facility] Medical History Diabetes mellitus Inflammatory osteoarthritis Right elbow pain Intermittent pain and swelling of hand Elevated LFTs Osteoarthritis Overweight (BMI 25.0-29.9) Smoker Osteopenia Vitamin D deficiency Cervical spine arthritis Elevated blood pressure reading Pure hypercholesterolemia Type 2 diabetes mellitus without complications Surgical History History of cataract surgery History of umbilical hernia repair Family History Father No problems noted. Mother No problems noted. Other Arthritis Social History Housing: House Alcohol intake: current Alcohol intake frequency: holidays/special occasions only Patient Tobacco Use Status: Current everyday Tobacco user Tobacco use type: Cigarette Cigarette Packs Per Day: 1 Cigarettes Per Day: 20 e-Cigarette/Vaping Use: Never Used Second Hand Smoke Exposure: Yes service: No Current occupational status: disabled Cognitive needs: No Hearing needs: No Vision needs: Yes Questionnaire PHQ-9 Over the last 2 weeks, how often have you been bothered by any of the following problems? 1. Little interest or pleasure in doing things: not at all 2. Feeling down, depressed, or hopeless: not at all 3. Trouble falling or staying asleep, or sleeping too much: not at all 4. Feeling tired or having little energy: not at all 5. Poor appetite or overeating: not at all 6. Feeling bad about yourself - or that you are a failure or have let yourself or your family down: not at all 7. Trouble concentrating on things, such as reading the newspaper or watching television: not at all 8. Moving or speaking so slowly that other people could have noticed. Or the opposite - being so fidgety or restless that you have been moving around a lot more than usual: not at all 9. Thoughts that you would be better off or of hurting yourself in some way: not at all Total score: 0 Depression Screening Interpretation: Negative Depression Screening Done: Yes 87694 - PHQ-9 Billing: Yes Source: Developed by Drs. Binh Gonsalez, Tamara Mosnalve, Mateus De Oliveira and colleagues, with an educational bianca from [employer]. Thrive Questionnaire Date Thrive assessed: 12/07/24 I am a: Patient What is your living situation today?: I have a steady place to live Within the past 12 months, did the food you bought not last and you didn't have the money to get more?: Never true Within the past 12 months, did you worry whether your food would run out before you got money to buy more?: Never true Do you have trouble paying for medicines?: I choose not to answer this question Do you have trouble getting transportation to medical appointments?: I choose not to answer this question Do you have trouble paying your heating and electricity bill?: I choose not to answer this question Do you have trouble taking care of your child, family member or friend?: I choose not to answer this question Do you have trouble with day-to-day activities such as bathing, preparing meals, shopping, managing finances, etc.?: I choose not to answer this question Are you currently unemployed and looking for a job?: I choose not to answer this question Are you interested in more education?: I choose not to answer this question Please select the resources that you would like help with: None Currently or been in a relationship where the following occur: No concerns reported THRIVE Score: 0 AUDIT C Alcohol Use Questionnaire (AUDIT-C) 1. How often do you have a drink containing alcohol?: Never 3. How often do you have six or more drinks on one occasion?: Never Total Score: 0 Score Reviewed/Action Taken: Yes RASHMI-7 AMB Questionnaire RASHMI-7 Date RASHMI - 7 assessed: 12/07/24 Feeling nervous, anxious, or on edge: 0 = Not at all Not being able to stop or control worryin = Not at all Worrying too much about different things: 0 = Not at all Trouble relaxin = Not at all Being so restless that it is hard to sit still: 0 = Not at all Becoming easily annoyed or irritable: 0 = Not at all Feeling afraid as if something awful might happen: 0 = Not at all Total RASHMI-7 score (0-4 normal; 5-9 mild; 10-14 moderate; 15-21 severe): 0 Source: Developed by Drs. Binh Gonsalez, Tamara Monsalve, Mateus De Oliveira and colleagues, with an educational bianca from [employer]. Review of Systems Const Denies chills, Denies fatigue, Denies fever(s) and Denies headache(s) ENT Denies dysphagia, Denies dizziness, Denies otalgia, Denies headache(s), Reports hearing loss (in both ears - feels this is increasing ), Reports neck pain (chronic), Denies odynophagia and Denies sore throat Card Denies chest pain, Denies palpitations and Denies dyspnea Resp Denies chest congestion, Denies cough and Denies dyspnea GI Denies abdominal pain, Denies constipation, Denies dysphagia, Denies heartburn, Denies diarrhea, Denies nausea, Denies odynophagia and Denies vomiting Denies difficulty voiding, Denies nocturia, Denies dysuria and Denies urinary urgency Musc Denies back pain, Reports deformity (all fingers on both hands), Reports arthralgias (left shoulder; fingers on both hands; increased over left ankle laterally) and Reports neck pain (chronic) Skin/Breast Denies rash Neuro Denies dizziness and Denies headache(s) Psych Reports depression Endo Denies fatigue and Denies palpitations Physical exam (Primary Care) Vital Signs: Last Vital Signs Pulse 89 12/07/24 12:44 BP 116/78 12/07/24 12:44 Pulse Ox 96 12/07/24 12:44 Oxygen Delivery Method Room Air 12/07/24 12:44 BMI result Body Mass Index 24.8 Tobacco/Smoking Status: Tobacco use Status Tobacco use date assessed 12/07/24 12/07/24 12:48 Patient Tobacco Use Status Current everyday Tobacco 12/07/24 12:48 Tobacco use type Cigarette 12/07/24 12:48 e-Cigarette/Vaping Use Never Used 12/07/24 12:48 PHQ-9: PHQ-9 Score PHQ-9: Total score 0 12/07/24 12:48 Depression Screening Interpretation: Negative Thrive Assessment: Date of Thrive Assessment Date Thrive assessed 12/07/24 12/07/24 12:48 Currently or been in a relationship where the following occur: No concerns reported Const General: no acute distress and alert HENMT Ears: TM's normal bilaterally and EAC's normal Throat: Yes posterior oropharynx normal and Yes tonsils normal (no TP congestion noted) Neck Neck: Yes supple and No lymphadenopathy Thyroid: Thyroid normal Resp Auscultation: clear to auscultation bilaterally, no rales, rhonchi (occasional, over both lung maciel) and no wheezes Cardio Rate: regular rate Rhythm: regular rhythm Heart sounds: no murmurs GI Palpation (GI): Soft to palpation and nontender Auscultation: normal bowel sounds General: Yes no CVA tenderness Back/Spine/Pelvis Back: no CVA tenderness Cervical Spine: Cervical spine tenderness (chronic) Thoracic/Lumbar Spine: No lumbar spinal tenderness Skin Rashes: no rashes Extrem Other: (+) scattered varicose veins on both lower legs General: Yes no clubbing, cyanosis or edema Right upper extremity: Extremity exam: right hand Details: abnormal ROM of finger (all fingers stiff with (+) bony enlargements over IP joints on exam) Left upper extremity: hand Details: abnormal ROM of finger (all fingers stiff with (+) bony enlargements over IP joints on exam) Left lower extremity: ankle Details: tenderness Location: of the lateral malleolus; no swelling Results Reviewed Results Reviewed: Laboratory Tests 12/05/24 12/05/24 09:37 09:41 WBC 10.8 Hgb 14.3 Hct 43.6 Plt Count 236 Sodium 140 Potassium 3.9 Creatinine 0.68 Estimated GFR > 60 Fasting Glucose 107 H Hemoglobin A1c % 7.5 H Calcium 9.3 AST 38 H ALT 32 H Triglycerides 49 Cholesterol 131 LDL Cholesterol, Calc 72 HDL Cholesterol 50 Vitamin B12 992 H 25-OH Vitamin D Total 64.1 TSH 0.97 Ur Specific Rom[place] 1.020 Urine Protein Negative Urine Glucose (UA) Negative Urine Blood Negative Urine Nitrite Negative Ur Leukocyte Esterase Large (3+) H Microalb/Creat Ratio 35.2 H Coding Level of Care Code Est Pt Level 4 (83095) Diagnoses Type 2 diabetes mellitus with hyperglycemia, without long-term current use of insulin E11.65 Diabetes mellitus type: type 2 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 Diabetes mellitus complication status: with hyperglycemia Pure hypercholesterolemia E78.00 Elevated blood pressure reading R03.0 Elevated LFTs R79.89 Cervical spine arthritis M47.812 Primary osteoarthritis, unspecified site M19.91 Osteoarthritis location: unspecified site Osteoarthritis type: primary Osteopenia, unspecified location M85.80 Osteopenia location: unspecified Vitamin D deficiency E55.9 Constipation, unspecified constipation type K59.00 Constipation type: unspecified constipation type Bilateral hearing loss, unspecified hearing loss type H91.93 Hearing loss type: unspecified Laterality: bilateral Smoker F17.200 Additional Codes PHQ-9 - 96941 - PHQ-9 Billing: Yes ([id number]) Assessment & Plan Assessment & Plan (1) Diabetes mellitus: Code(s): E11.9 - Type 2 diabetes mellitus without complications Category: Medical Qualifiers: Diabetes mellitus type: type 2 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 Diabetes mellitus complication status: with hyperglycemia Qualified Code(s): E11.65 - Type 2 diabetes mellitus with hyperglycemia Plan: Her HgbA1c improved significantly to 7.5% on her labs done a couple of days ago (was previously at 9.7% a few months ago) - goal is at least < 7.0% Reinforced diabetic diet Continue Metformin 1000 mg BID, Januvia 100 mg QD and Farxiga 10 mg QD Will recheck her FBS and HgbA1c in 4 months for follow-up (2) Pure hypercholesterolemia: Code(s): E78.00 - Pure hypercholesterolemia, unspecified Category: Social Hx Plan: Results of her labs done a couple of days ago reviewed and discussed with patient Reinforced low-cholesterol diet Continue Simvastatin 40 mg QD Will recheck her labs and fasting lipids in 4 months for follow-up (3) Elevated blood pressure reading: Code(s): R03.0 - Elevated blood-pressure reading, without diagnosis of hypertension Category: Medical Plan: His blood pressure is much better today with her recent weight loss Reinforced low-sodium diet Patient is reminded to continue monitoring her blood pressure regularly (4) Elevated LFTs: Code(s): R79.89 - Other specified abnormal findings of blood chemistry Category: Medical Plan: Her LFTs are again slightly elevated on her recent labs Patient has lost a lot of weight since her last visit so this may be likely due to her statin Rx Patient denies any acute GI symptoms Will continue to monitor her LFTs regularly at this time (5) Cervical spine arthritis: Code(s): M47.812 - Spondylosis without myelopathy or radiculopathy, cervical region Category: Medical Plan: S/P physical therapy last year with some improvement of symptoms Continue Acetaminophen-Codeine #4 tablet, 300-60 mg, 1 tablet 1 to 2 times a day only as needed for severe pain and Ibuprofen 800 mg TID with food as needed (6) Osteoarthritis: Comment: (+) Heberden's nodes and Lia's nodes present on multiple fingers on both hands Code(s): M19.90 - Unspecified osteoarthritis, unspecified site Category: Medical Qualifiers: Osteoarthritis location: unspecified site Osteoarthritis type: primary Qualified Code(s): M19.91 - Primary osteoarthritis, unspecified site Plan: Continue current Rx PRN for pain relief Follow up with rheumatology as scheduled (7) Osteopenia: Code(s): M85.80 - Other specified disorders of bone density and structure, unspecified site Category: Medical Qualifiers: Osteopenia location: unspecified Qualified Code(s): M85.80 - Other specified disorders of bone density and structure, unspecified site Plan: BMD done in 2020 revealed (+) osteopenia Repeat BMD done in September 2024 revealed the same (osteopenia) with no significant change from previous Will continue to monitor BMD regularly Patient is reminded to continue taking her Calcium tablets? 500 mg twice a day and Vitamin D supplements daily (8) Vitamin D deficiency: Code(s): E55.9 - Vitamin D deficiency, unspecified Category: Medical Plan: Continue Vitamin D3 1000 units QD (9) Constipation: Code(s): K59.00 - Constipation, unspecified Category: Medical Qualifiers: Constipation type: unspecified constipation type Qualified Code(s): K59.00 - Constipation, unspecified Plan: Reinforced increased oral fluids and dietary fiber to help manage her constipation Continue Senna 8.6 mg Q HS PRN (10) Hearing impairment: Code(s): H91.90 - Unspecified hearing loss, unspecified ear Category: Medical Qualifiers: Hearing loss type: unspecified Laterality: bilateral Qualified Code(s): H91.93 - Unspecified hearing loss, bilateral Plan: Follow up with ENT as scheduled (11) Smoker: Code(s): F17.200 - Nicotine dependence, unspecified, uncomplicated Category: Social Hx Plan: Patient is counseled again on complete smoking cessation Continue Nicorette gum to help her quit smoking Continue Benzonatate PRN to help with her recurrent coughing Plan Follow up in 4 months Orders: Orders Hemoglobin A1c 4 Months E11.9 - Type 2 diabetes mellitus without complications Comprehensive [place]. Panel Fast 4 Months E78.00 - Pure hypercholesterolemia, unspecified Microalbumin, Random (w Creat) 4 Months E11.9 - Type 2 diabetes mellitus without complications UA CC w/rflx Micro + Cult 4 Months R30.0 - Dysuria Complete Blood Count Auto Diff 4 Months D64.9 - Anemia, unspecified Lipid Panel 4 Months E78.00 - Pure hypercholesterolemia, unspecified TSH reflex Free T4 4 Months E78.00 - Pure hypercholesterolemia, unspecified Vitamin D 25-OH Total 4 Months E55.9 - Vitamin D deficiency, unspecified Medications: New [SHOWER CHAIR] As directed 1 ea 0RF M19.91 - Primary osteoarthritis, unspecified site, M47.812 - Spondylosis without myelopathy or radiculopathy, cervical region
[2024-12-07 12:44] VITALS: BP 116/78; PULSE 89; O2SAT 96; BMI 24.8
== END 2024-12-07 13:32 | disposition home or self-care (01) ==
LOC: HO.HMCH 12:38
PROVIDERS: PCP Internal Medicine; Visit Provider Internal Medicine
DX: E11.65 Type 2 diabetes mellitus with hyperglycemia (principal); E78.00 Pure hypercholesterolemia, unspecified; R03.0 Elevated blood-pressure reading, without diagnosis of hypertension; R79.89 Other specified abnormal findings of blood chemistry; M47.812 Spondylosis without myelopathy or radiculopathy, cervical region; M19.91 Primary osteoarthritis, unspecified site; M85.80 Other specified disorders of bone density and structure, unspecified site; E55.9 Vitamin D deficiency, unspecified; K59.00 Constipation, unspecified; H91.93 Unspecified hearing loss, bilateral; F17.200 Nicotine dependence, unspecified, uncomplicated

== ENCOUNTER → 2024-12-07 12:37 | Outpatient (BNVA) | payer MEDICARE, MEDICAID, SELFPAY | PROVIDERS: PCP Internal Medicine; Visit Provider Internal Medicine | DX: E11.65 Type 2 diabetes mellitus with hyperglycemia (principal); E78.00 Pure hypercholesterolemia, unspecified; R03.0 Elevated blood-pressure reading, without diagnosis of hypertension; R79.89 Other specified abnormal findings of blood chemistry; M47.812 Spondylosis without myelopathy or radiculopathy, cervical region; M19.91 Primary osteoarthritis, unspecified site; M85.80 Other specified disorders of bone density and structure, unspecified site; E55.9 Vitamin D deficiency, unspecified; K59.00 Constipation, unspecified; H91.93 Unspecified hearing loss, bilateral; F17.200 Nicotine dependence, unspecified, uncomplicated; Z71.6 Tobacco abuse counseling | CPT/HCPCS: 96127; 99212 ==